=== PATIENT | male | born 1970 | race Caucasian/White ===

== ENCOUNTER → 2020-11-22 | Outpatient (CLI) | payer OTHER, SELFPAY ==
--- NOTE | 2020-11-22 09:00 | LIP_PTH ---
PATIENT: ANGÉLICA CHAMBERS LOC: [facility] U#:[id number] AGE/SX: 50/M ROOM: RE11/22/[address]: Dr. Yahir Handy MD : 1970 BED: DIS: 11/22/2020 SPEC #: [id number] RECD: 11/22/20 10:41 STATUS: SHREYA REJuan Manuel #: [id number] FATUMA: 11/22/20 09:[address]: Yahir Handy DEPT: SURGICAL PATHOLOGY RECD BY: Chio Larry ENTERED: 11/22/20 13:17 SP TYPE: LIPOMA OTHR DR: Dr. Ty Knight MD Tissues: Soft tissues, NOS Procedures: Surgery Specimen Level III HEADER OPERATION: Excision of right shoulder lipoma PRE-OP DIAGNOSIS: Lipoma right shoulder TISSUE SUBMITTED: Right shoulder lipoma MICROSCOPIC DIAGNOSIS Right shoulder lipoma, excision: Mature adipose tissue, consistent with lipoma. SJ:darien 11/23/2020 MICROSCOPIC DESCRIPTION Slides are reviewed. GROSS DESCRIPTION Received in fixative is one container labeled with the patient's name and designated right shoulder. The specimen consists of an irregular fragment of yellow fatty tissue measuring 3.8 x 2 x 2 cm. Serial sections reveal homogenous yellow cut surfaces. Sr. Payroll Processor sections are submitted in one cassette. / AM:darien 11/22/20 TC:1 CPT: 09244
== END | disposition home or self-care (01) ==
PROVIDERS: PCP Family Medicine; Referring Provider Surgery; Visit Provider Surgery
DX: D17.21 Benign lipomatous neoplasm of skin and subcutaneous tissue of right arm (principal)
CPT/HCPCS: 88304

== ENCOUNTER → 2021-10-03 | Outpatient (CLI) | payer OTHER, SELFPAY ==
--- NOTE | 2021-10-03 18:41 | CT_ITS ---
INDICATION: upper back mass -- upper back mass EXAMINATION: CT CHEST WITH CONTRAST - CT Chest W/ Contrast Injection TECHNIQUE: Helically acquired images were obtained of the chest following IV contrast. A radiation dose optimization technique was used for this scan. IV Contrast dosage and agent: 100 cc [id number] COMPARISON: None. FINDINGS: 5.5 x 1.2 x 5.8 cm intramuscular lipoma immediately posterior and medial to the right scapula. LUNGS, PLEURA AND LARGE AIRWAYS: No masses, consolidation, or edema. No pleural effusion or thickening. No pneumothorax. THYROID: No thyroid lesions. HEART AND PERICARDIUM: Heart size is normal. No pericardial effusion. VESSELS: Thoracic aorta is not dilated. No aortic dissection. No obvious central pulmonary embolism although this study was not performed with the pulmonary embolism protocol. MEDIASTINUM AND SHANELLE: No mediastinal or hilar adenopathy. Esophagus is unremarkable. No hiatal hernia. UPPER ABDOMEN: No acute abnormal finding. BONES: Thoracic spine degenerative change. CT/Chest WITH Contrast IMPRESSION: Intramuscular lipoma posterior medial to the right scapula measures up to 5.8 cm. No acute abnormal intrathoracic finding. Electronically Signed: Kevon Peterson MD at 6:57 EDT ,
[2021-10-03 19:05] LABS: CREATININE FINGERSTICK < 0.9 mg/dL (0.70-1.30); EGFR FINGERSTICK > 60.0000 mL/min (>60)
== END | disposition home or self-care (01) ==
PROVIDERS: PCP Family Medicine; Visit Provider Surgery
DX: D17.1 Benign lipomatous neoplasm of skin and subcutaneous tissue of trunk (principal)
CPT/HCPCS: 71260; Q9967

== ENCOUNTER 2021-11-29 09:49 | Day surgery (SDC) | payer OTHER, SELFPAY ==
[2021-11-29] VITALS (7 sets, daily range): BP systolic 120–159; BP diastolic 76–97; PULSE 54–85; RESP 16–18; TEMP 36.2–37.2; O2SAT 94–100; BMI 29.0
[2021-11-29] MEDS: Lactated Ringers 1,000 ML 15 ML IV (10:14)
--- NOTE | 2021-11-29 10:39 | PCM.HP.BLA ---
History and Physical Date of Admission: 11/29/21 Intake Intake Visit Reasons:?F/U CT FOR LIPOMA ON BACK Chief Complaint: Lipoma Right Upper Back Allergies No Known Allergies Allergy (Verified 09/27/21 08:23) [facility] Medical History?(Updated 11/20/21 @ 13:[address] Yahir Handy MD) Anxiety HTN (hypertension) Subcutaneous mass of back Surgical History? S/P carpal tunnel release Status post bilateral hernia repair Family History? Mother Diabetes Hypertension Heart diseaseFather Heart disease Social History? Smoking Status:? Never smoker alcohol intake:? never HPI HPI HPI: Patient is a 51-year-old male following up after CT scan for large lipoma on his right back which is bothering him anytime he has to lift anything or work ROS General General: No weight change or fatigue HEENT HEENT: No difficulty swallowing Endo Endocrine: No thyroid disease Musc Musculoskeletal: No back problems or arthritis Additional Details: Pain on the right side of his back where there is a large mass Cardio Cardiovascular: No pacemaker, heart disease, atrial fibrillation, high blood pressure, heart attack, heart stent, palpitations or chest pain Psych Psychiatric: No depression or anxiety Resp Respiratory: No shortness of breath, No cough, No COPD, No asthma and No emphysema Gastro Gastrointestinal: No abdominal pain, No nausea or vomiting, No diarrhea, No constipation, No blood in stool, No acid reflux, No hemorrhoids, No ulcers, No gallbladder problem and No black,tarry stools Jean Paul Hematologic: No blood thinners Exam Const General: cooperative Orientation: alert and oriented x3 HENMT Head: normal to inspection Neck Neck: normal visual inspection and full ROM Chest Chest palpation & inspection: normal inspection of the chest Resp Effort & Inspection: normal respiratory effort Auscultation: clear to auscultation bilaterally Cardio Rate: regular rate Rhythm: regular rhythm GI Inspection: non-distended Palpation: soft and nontender Musc Other: Soft tissue mass medial to the right scapula Skin General: no rashes or lesions noted Neuro General: patient alert and patient oriented x3 Extrem General: full ROM Psych Appearance: grossly normal Mental Status: mental status grossly normal Assessment and Plan Assessment and Plan (1) Lipoma of back: ?Status:?Acute ?Plan: The patient has a large lipoma which is intramuscular medial to the right scapula.? Patient reports that it is causing him pain and discomfort especially when lifting or working.? I discussed the CT scan with him and went over it with him and I discussed excision of this lipoma.? I discussed the increased risk due to it being intramuscular.? I also discussed the risks of bleeding and infection and seroma or hematoma formation.? I also discussed the risks of nerve injury.? Patient understands all the risks and would like to proceed with excision of this back mass. Yahir Handy MD Pager: [facility] [address] [place] [address] [place] [address] Office: I have re-examined the patient. There are no clinical changes since date of exam.
[2021-11-29] MEDS: Cefazolin 2 GM in 0.9% Normal Saline 100 ML IV (11:10)
--- NOTE | 2021-11-29 11:30 | LIP_PTH ---
PATIENT: ANGÉLICA CHAMBERS LOC: [facility] U#:[id number] AGE/SX: 51/M ROOM: RE11/29/[address]: Dr. Yahir Handy MD : 1970 BED: DIS: 11/29/2021 SPEC #: [id number] RECD: 11/29/21 13:47 STATUS: SHREYA REJuan Manuel #: [id number] FATUMA: 11/29/21 11:[address]: Yahir Handy DEPT: SURGICAL PATHOLOGY RECD BY: Chio Larry ENTERED: 12/02/21 09:08 SP TYPE: LIPOMA OTHR DR: Dr. Ty Knight MD Tissues: Soft tissues, NOS Procedures: Surgery Specimen Level III HEADER OPERATION: Excision, lipoma, back PRE-OP DIAGNOSIS: Lipoma of back TISSUE SUBMITTED: Lipoma of right back MICROSCOPIC DIAGNOSIS Lipoma, right back, excision: Mature adipose tissue consistent with lipoma. SJ:darien 12/03/2021 MICROSCOPIC DESCRIPTION Slides are reviewed. GROSS DESCRIPTION Received in fixative is one container labeled with the patient's name and designated lipoma of right back. The specimen consists of a lobulated piece of adipose tissue measuring 6.5 x 5.5 x 2 cm. The specimen is inked, serially sectioned and reveals yellow adipose cut surfaces. A detached piece of adipose tissue is also noted measuring 2 x 1.5 x 0.5 cm. Bleaching Supervisor sections are submitted in three cassettes. Cassette 1 also contains the detached piece of tissue. / DEVIN:darien 12/02/2021 TC:1 CPT: 67199
[2021-11-29] MEDS: Lidocaine 1% /Epi 1:100 (20ml) 20 ML Vial (11:36)
--- NOTE | 2021-11-29 11:50 | OP.PCM_ITS ---
Report of Operation Date of Procedure: 11/29/21 Pre-Operative Diagnosis: Intramuscular right back lipoma Post-Operative Diagnosis: Same Surgery/Procedure Performed:: Excision of intramuscular right back lipoma Description of Surgical Findings:: 7 cm lipoma deep to the fascia just medial to the scapula Specimen's removed: Lipoma Description of Procedure: Patient was brought back to the operating room and general anesthesia was induced. Patient was placed in left lateral decubitus position. The back was prepped and draped in usual sterile fashion. Just medial to the scapula an incision was marked and injected with local anesthetic. Scalpel was used to incise the skin and then electrocautery was used to maintain hemostasis. Next the fascia was incised using electrocautery and the lipoma was encountered. It was dissected free circumferentially using electrocautery and sharp dissection. It measured 7 cm in diameter. The cavity was dry and hemostasis was obtained with electrocautery. Next the fascia was reapproximated using a running 0 Vicryl suture. The subcutaneous tissue was then closed using a running 3-0 Vicryl suture. The skin was closed using a running 4-0 Monocryl suture. Steri- Strips and bandage were applied. Patient was then awoken. Patient tolerated the procedure well and was taken to PACU in stable condition. Admit VTE Documentation VTE Mechan Device Prophylaxis: SCD's
--- NOTE | 2021-11-29 11:50 | DCINST_ITS ---
Discharge Instructions Diet Discharge Diet: Light diet - advance as tolerated Activity Discharge Activity: May Not Drive (for 2-3 days or while taking narcotic medications) and May Shower (tomorrow over bandage) Lifting Restrictions: 15 lbs for 1 week Dressing / Incision Call your doctor if your incision/area has: Continuous Slow Oozing, Sudden Increased Bleeding, Increased Pain/ Swelling, Increased Redness, Foul Smelling Discharge and Swelling at the incision site Call your doctor if you observe: Fever of 101 or Higher Remove Dressing in: 2 days (Remove bandage in 2 days, remove steri strips in 7- 10 days) Cleanse incision/area with: Soap & Water Follow Up Care Please Follow Up With: Yahir Handy MD When: Please call to schedule 2 week follow up appointment. [phone] Test Results: Test results from this visit will be discussed in further detail at your follow- up appointment, if applicable. Discharge Plan Admission Attending Provider: Yahir Handy Primary Care Provider: Ty Knight Discharge Orders/Prescriptions Prescriptions: New oxycodone-acetaminophen [Percocet] 5-325 mg tablet 1 - 2 tab PO Q4H PRN (Reason: pain) 5 Days Qty: 20 0RF No Action sertraline 100 mg tablet 100 tablet PO DAILY amlodipine 10 mg tablet 10 tablet PO DAILY multivitamin Tablet 1 tab PO DAILY Referrals / Follow Up: Ty Knight MD [Primary Care Provider] - Disposition Disposition (needs filled in before D/C Order can be placed): Home, Self Care
[2021-11-29] MEDS: oxyCODONE 5 MG Tablet PO (13:44)
== END 2021-11-29 14:17 | disposition home or self-care (01) ==
LOC: SDC 09:51 → AC 09:53
PROVIDERS: PCP Family Medicine; Referring Provider Surgery; Visit Provider Surgery
PROC: (CPT 21933; principal; 2021-11-29 11:15)
DX: D17.1 Benign lipomatous neoplasm of skin and subcutaneous tissue of trunk (principal); I10 Essential (primary) hypertension; F41.9 Anxiety disorder, unspecified; Z79.899 Other long term (current) drug therapy
CPT/HCPCS: 21933; 00300; 88304; J7120; J2405

== ENCOUNTER → 2022-07-03 | Outpatient (CLI) | payer OTHER, SELFPAY ==
--- NOTE | 2022-07-03 15:22 | MRI_ITS ---
EXAM: MR RIGHT LOWER EXTREMITY WITHOUT INTRAVENOUS CONTRAST, FOOT CLINICAL INDICATION: PLANTAR FASCIAL FIBROMATOSIS TECHNIQUE: Multiplanar and multisequence MR images of the right foot without intravenous contrast. This report was created using Sensdata report FilmTrack technology. COMPARISON: None. FINDINGS: LIGAMENTS: MEDIAL COLLATERAL: Unremarkable. Intact. LATERAL COLLATERAL: Unremarkable. Intact. LISFRANC: Unremarkable. Intact. TENDONS: FLEXOR: Intact tendons. Tenosynovitis involving the posterior tibialis tendon and flexor hallux longus tendon. EXTENSOR: Unremarkable. Intact. PERONEAL: Peroneal tenosynovitis. The tendons are intact. . TIBIALIS ANTERIOR: Unremarkable. Intact. TIBIALIS POSTERIOR: Unremarkable. Intact. MUSCLES: Unremarkable. No edema or myositis. FLUID: Unremarkable. No joint effusion. PLANTAR FASCIA: Thickening of the central cord of plantar fascial with fluid signal immediately immediately adjacent to the thickened cord. BONES/JOINTS: Likely reactive bone marrow signal changes at the posterior inferior calcaneus. Thickening of the anterior talofibular ligament probably previous injury. Ankle mortise intact with no osteochondral lesions or defects. Deltoid ligament complex is intact. Normal forefoot alignment. No fracture. No joint effusion. No other ligament tears. OTHER SOFT TISSUES: Tendons are intact. MRI/Lower Ext Joint Only (Routine) IMPRESSION: 1. Thickening of the central cord of plantar fascial with fluid signal immediately immediately adjacent to the thickened cord. 2. Likely reactive bone marrow signal changes at the posterior inferior calcaneus. 3. Thickening of the anterior talofibular ligament probably previous injury. 4. Tenosynovitis involving the peroneal tendons, posterior tibial tendon, and flexor hallux longus tendon. Electronically Signed: David Dejesus MD at 21:37 EDT ,
== END | disposition home or self-care (01) ==
PROVIDERS: PCP Family Medicine; Referring Provider Podiatrist; Visit Provider Podiatrist
DX: M72.2 Plantar fascial fibromatosis (principal)
CPT/HCPCS: 73721

== ENCOUNTER 2022-08-15 08:36 | Day surgery (SDC) | payer OTHER, SELFPAY ==
[2022-08-15 08:57] VITALS: BP 155/97; PULSE 71; RESP 16; TEMP 36.4; O2SAT 96; BMI 25.4
[2022-08-15] MEDS: Lactated Ringers 1,000 ML 15 ML IV (09:03)
[2022-08-15] MEDS: Cefazolin 2 GM in 0.9% Normal Saline 100 ML IV (11:07)
[2022-08-15] MEDS: Bupivacaine Mpf 0.5% 30 ML VIAL (12:01)
[2022-08-15] MEDS: Bacitracin 500 UNITS/GM PACKET (12:01)
[2022-08-15 12:15] VITALS: BP 121/91; BP 155/97; PULSE 55; RESP 16; TEMP 36.3; O2SAT 94
--- NOTE | 2022-08-15 12:17 | PCM.OPRPT ---
Problems Associated Problem List Diagnoses (1) Other acute postprocedural pain: (2) Plantar fascial fibromatosis: Report of Operation Date of Procedure: 08/15/22 Pre-Operative Diagnosis: 1. plantar fasciitis, right foot Post-Operative Diagnosis: same Surgery/Procedure Performed:: endoscopic plantar fasciotomy right foot Description of Surgical Findings:: Patient had MRI confirmed plantar fascia has failed cam boot immobilization and inserts injection. Whether to proceed with surgical intervention. Surgeon: Jac Pedraza nursing program chair: None (bhavin beverage) Type of Anesthesia: General Special Medications: 20cc 0.5% marcaine plain Specimen's removed: none Drains: none Estimated Blood Loss (mL): minimal Fluids Replaced: none Description of Procedure: Patient brought back the operating please complete in supine position. Patient used under general anesthesia. Well-padded right thigh tourniquet applied. Right lower extremity scrubbed prepped draped using typical aseptic fashion. Right lower extremity was elevated exsanguinated tourniquet was inflated to 300 mmHg. Just along the just 1 cm distal to the calcaneal tuberosity along the plantar medial surface a small stab incision was made with a 15 blade using the plane finder the plantar fascial band was scrubbed and identified the plane finder was passed from medial to lateral along the plantar aspect of that central band of the plantar fascia a second incision was made laterally portal incision stab incision with a 15 blade at the site of the plane finder plane finder was passed all the way through the cannula with trocar was then inserted and the slot was then rotated to adequately visualize the plantar fascia from an inferior to superior aspect. The cannula was then cleaned with multiple Q-tips. The 3 mm scope was inserted and the plantar fascial band was identified the medial two thirds of the plantar fascial band was then released using the hook blade, with the Arthrex endoscopic plantar fasciotomy release kit from lateral to medial and it was two thirds of the central band was released. Adequate visualization of the underlying muscle was noted which suggestive sufficient release. All devices were removed from incision sites. Incision flushed with copious amounts of normal sterile saline. Incision was closed with horizontal mattress 3-0 Prolene. Dressed with bacitracin Adaptic 4 x 4's Kerlix and a well-padded AO splint. Prior to incisional closure the tourniquet was let down. Patient transferred to PACU with vital signs stable vascular status intact all digits for further monitoring prior to discharge. Patient tolerated procedure and anesthesia well in apparent satisfactory condition. No complications
[2022-08-15 12:29] VITALS: BP 128/94; BP 155/97; PULSE 58; RESP 16; O2SAT 93
[2022-08-15 12:30] VITALS: BP 135/94; BP 155/97; PULSE 51; RESP 16; O2SAT 98
[2022-08-15 13:15] VITALS: BP 155/97
== END 2022-08-15 13:36 | disposition home or self-care (01) ==
LOC: SDC 08:37 → AC 08:39
PROVIDERS: PCP Family Medicine; Referring Provider Podiatrist; Visit Provider Podiatrist
PROC: (CPT 29893; principal; 2022-08-15 10:00)
DX: M72.2 Plantar fascial fibromatosis (principal); G89.18 Other acute postprocedural pain; F17.220 Nicotine dependence, chewing tobacco, uncomplicated; I10 Essential (primary) hypertension; F32.A Depression, unspecified; Z79.899 Other long term (current) drug therapy; Z79.82 Long term (current) use of aspirin
CPT/HCPCS: 29893; 01464; J7120; J2405

== ENCOUNTER 2022-10-10 09:00 | Outpatient (RCR) | payer OTHER, SELFPAY ==
--- NOTE | 2022-09-17 10:51 | HP.PTEVAL ---
Patient's Visit Information Visit Information Visit Information: ANGÉLICA CHAMBERS is a 51 year old M referred to Physical Therapy by Dr. Jac Pedraza DPM with a diagnosis of Plantar fascia fibromatosis s/p PF surgery 08/15. Date of Evaluation: 09/17/22 Physical Therapist: Renzo Cruz DPT, OCS, CSCS Visit Plan Frequency: 2x /Week Duration: 4-6 Weeks Plan: 22x/week for 4-6 as needed for 1. STM gently PF and stretch R PF 2. strength adn proprioception R foot and ankle 3. general LE strength to tolerate return to work 10 hrs on feet for work. Walking progression. Subjective Subjective: 08/15 had plantarfasciitis surgery. had pain for a couple years and failed conservative therapy. Surgery seemed to help. pain not currently an issue. Slight pain at cookout last thursday after being on feet for long time. Sleep is not a problem. Healing for last month, in boot for 4 weeks and was NWB for first 3 weeks. 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 Off work until October 07. Hobbies: walking. Basic ADLs are well. Pain R foot: Pain Intensity (Out of 10): 0 Pain Intensity Range: 0 and 7 Objective Objective: Walks into PT I with slight R antalgia avoiding push off. AROM R ankle DF 0 vs 5 on L, PF 55 B, inv and ev symmetrical and WFL without pain. Tender medial R PF today gently. Incisions have healed well without any redness or concerns and no obvious palpable sacr tissue. Big toe AROM WFL and symmetrical B pes planus apparent. corrective insoles in place today. Metatarsal movement is nearly symmetrical side to side. strength ankle 4 R DF, inv and ev vs 4+ on L. PF heel raises are easy B without pain, slightly harder R vs L. LE strength 4/5 knees and hips B LE reflexes 2/3 patella and achilles Sensation LE WNL to gross light touch. able to toe walk and heel walk. Balance/Special Test Scores Lower Extremity Functional Score: 60 Goals Goal 1:: Full aROM R ankle to L without pain Goal Time Frame: 2 Weeks Goal 2:: Walk without antalgia into PT Goal Time Frame: 2 Weeks Goal 3:: I appropriate strength adn stretching R foot for prophylaxis Goal Time Frame: 4-6 Weeks Goal 4:: Pt ready to return to work Goal Time Frame: 2-4 Weeks Rehabilitation Potential Physical Therapy Diagnosis: stiffness and weakness R foot post surgery Rehabilitation Potential: Good Anticipated Interventions Patient/Client Instruction: Educate patient on: Condition and Plan of Care For the Purpose of:: To decrease pain, To increase ROM, To improve nutrient delivery to tissue and To improve muscle performance and motor function Therapeutic Exercise to Include: Strength training, Flexibilty training, Gait and locomotor training, Passive ROM and Active ROM For the Purpose of:: To decrease pain, To increase ROM, To improve nutrient delivery to tissue, To improve muscle performance and motor function and To increase tolerance to activity/condition/position Manual Therapy Techniques to Include: Mobilization and Soft tissue mobilization For the Purpose of:: To decrease pain, To increase ROM and To improve nutrient delivery to tissue Text: Thank you for the opportunity to evaluate your patient. For Medicare and Medicare HMO plans, please review the plan of care and approve it. It will need to be FAXED BACK to us at [phone] for Medicare purposes. For Medicare only, by signing this I certify the plan of care. Please let me know if there are questions or concerns regarding this plan of care. Physician Signature: Date:
--- NOTE | 2022-10-10 09:43 | HP.PTDCSUM ---
Discharge Summary D/C summary: It has been my pleasure to treat ANGÉLICA CHAMBERS referred by Dr. Jac Pedraza DPM, with the diagnosis of Plantar fascia fibromatosis s/p PF surgery 08/15 for a total of 7 visit(s). Discharge Date: 10/10/22 Please see the following information for a summary of their discharge status. Subjective Subjective: Doing good. Not much pain. ROM is good, limps a little but due to hip. HEP going well at home. Sleep is OK. To doctor next Thursday. Activities at home pretty normal. Will go back to work Thursday. Can sit as needed. Pain R foot: Pain Intensity (Out of 10): 0 Overall Improvement % Improvement: 98 Objective Objective/Function: 4 DF, 60 PF, 30 inv, 20 eversion without pain. strength ankle 4+ all directions without pain. metatarsals moving well and without discomfort. walking without antalgia, steps reciprocal without rail or compensation. Doing well overall. Goals Goal 1:: Full aROM R ankle to L without pain Goal Progress: Goal Met Goal 2:: Walk without antalgia into PT Goal Progress: Goal Met Goal 3:: I appropriate strength adn stretching R foot for prophylaxis Goal Progress: Goal Met Goal 4:: Pt ready to return to work Goal Progress: Goal Met Plan Plan: d/c, to doctor next week. D/C Information d/c sentence: If there are questions or concerns regarding this patient's physical therapy, please feel free to call me at [phone]. Thank you for the referral of this patient. Sincerely, Renzo Cruz, DPT, OCS, CSCS Balance/Gait/Functional tests Balance/Special Test Scores Lower Extremity Functional Score: 74
== END 2022-10-10 09:52 | disposition home or self-care (01) ==
LOC: PT 09:00
PROVIDERS: PCP Family Medicine; Referring Provider Podiatrist; Visit Provider Podiatrist
DX: M72.2 Plantar fascial fibromatosis (principal)
CPT/HCPCS: 97110; 97140; 97161; 97164

== ENCOUNTER → 2023-05-23 | Outpatient (CLI) | payer OTHER, SELFPAY ==
--- OUTSIDE RECORDS SUMMARY | 2023-05-23 08:53 | XMS RPT_ITS | CCD ---
Author Name Unknown Address [address] [place] [address] Organization [facility] Care Team Providers Care Installation Engineer Name Role Phone Amberly Syed MD Unavailable Amberly Syed MD Unavailable [facility] Unavailable [phone] Sergio BLACKWOOD, Dr. Fernando Momin Unavailable Podiatry Provider Unavailable Unavailable Rozina BLACKWOOD, Dr. Sinclair Unavailable Maylin Eugene LPN Unavailable Darell BLACKWOOD, Camilo Lcuero Unavailable Daniel Steele MD Unavailable Kimberly OSORIO, Gilbert Alvarez Unavailable Zeinab Wallis Unavailable Unavailable Louise Monteiro MA Unavailable Unavailable Haleigh Huang PA-C Unavailable Cate QUESADA, Jennifer Unavailable Unavailable Gerdajae CORONA, Josselin Haney Unavailable Unavailab le Unavailable Unavailable AMBERLY SYED Attending Unavailable AMBERLY SYED Consulting Unavailable AMBERLY SYED Primary Care Unavailable AMBERLY SYED Admitting Unavailable PROVIDER, UNKNOWN Consulting Unavailable PROVIDER, UNKNOWN Consulting Unavailable PROVIDER, UNKNOWN Consulting Unavailable AMBERLY SYED Consulting Unavailable GILBERT WALLIS Attending Unavailable GILBERT WALLIS Primary Care Unavailable GILBERT WALLIS Admitting Unavailable PROVIDER, UNKNOWN Consulting Unavailable PROVIDER, UNKNOWN Consulting Unavailable PROVIDER, UNKNOWN Consulting Unavailable Neuro-Surgery Provider Unavailable Unavailab le Medications Current Medications Medication Drug Class(es) Dates Sig (Normalized) Sig (Original) atorvastatin 40 mg oral tablet (10 sources) HMG-CoA Reductase Inhibitor Start: 3 atorvastatin 40 mg tablet ; 1 (one) tablet qhs for 0 days Quantity: 90 {Tablet} Refills: 3 Ordered: 26-Feb-2023 MD Amberly Syed Start: 26-Feb-2023 gabapentin 300 mg oral capsule (1 source) Anti-epilepti c Agent Start: 4 take 1 capsule by mouth at bedtime gabapentin 300 mg capsule ; 1 (one) capsule at bedtime for 0 days Quantity: 30 {Capsule} Refills: 1 Ordered: 07-May-2023 MD Amberly Syed Start: 07-May-2023 hydroCHLOROthiazide 25 mg oral tablet (10 sources) Thiazide Diuretic Start: 3 hydroCHLOROthiazide 25 mg tablet ; 1 (one) tablet qam for 0 days Quantity: 90 {Tablet} Refills: 3 Ordered: 26-Feb-2023 MD Amberly Syed Start: 26-Feb-2023 24 hr metoprolol succinate 50 mg extended release oral tablet (10 sources) beta-Adrenerg ic Sonja Start: 3 metoprolol succinate ER 50 mg tablet,extended release 24 hr ; 1 (one) tablet daily for 0 days Quantity: 30 {Tablet} Refills: 5 Ordered: 11-Nov-2022 MD Camilo Lozoya Start: 11-Nov-2022 Multivitamin Adult Oral Tablet (10 sources) take 1 tablet by mouth once daily Multivitamin Adult Oral Tablet ; 1 daily rOPINIRole 1 mg oral tablet (10 sources) Nonergot Dopamine Agonist Start: 3 rOPINIRole 1 mg tablet ; 1 (one) tablet qhs for 0 days Quantity: 30 {Tablet} Refills: 1 Ordered: 26-Feb-2023 MD Amberly Syed Start: 26-Feb-2023 sertraline 100 mg oral tablet (20 sources) Serotonin Reuptake Inhibitor Start: 3 sertraline 100 mg tablet ; 1 1/2 Tablet daily for 0 days Quantity: 135 {Tablet} Refills: 1 Ordered: 13-Oct-2022 MD Camilo Lozoya Start: 13-Oct-2022 Completed/Discontinued Medications Medication Drug Class(es) Dates Sig (Normalized) Sig (Original) amLODIPine 10 mg oral tablet (10 sources) Dihydropyridine Calcium Channel Sonja Start: 08-27-2022 End: 09-11-2022 amLODIPine 10 mg tablet ; 1 (one) Tablet daily for 0 days Quantity: 90 {Tablet} Refills: 3 Ordered: 11-Sep-2022 MD Amberly Syed Start: 27-Aug-2022 End: 11-Sep-2022 Status: Inactive amoxicillin 875 mg oral tablet (10 sources) Penicillin-class Antibacterial Start: 02-26-2023 End: 03-24-2023 amoxicillin 875 mg tablet ; 1 (one) tablet bid for 0 days Quantity: 14 {Tablet} Refills: 0 Ordered: 24-Mar-2023 CHLOE Eugene Start: 26-Feb-2023 End: 24-Mar-2023 Status: Inactive amoxicillin 875 mg / clavulanate 125 mg oral tablet (10 sources) Penicillin-class Antibacterial Start: 01-26-2016 End: 06-19-2018 take 1 tablet by mouth twice daily Amoxicillin-Pot Clavulanate 875-125 MG Oral Tablet ; 1 (one) Tablet bid for 0 days Quantity: 20 {Tablet} Refills: 0 Ordered: 19-Jun-2018 Start: 26-Jan-2016 End: 19-Jun-2018 Status: Inactive azithromycin 250 mg oral tablet (4 sources) Macrolide Antimicrobial Start: 03-25-2023 End: 03-30-2023 azithromycin 250 mg tablet ; 2 (two) tablet day one, then one daily x 4 for 5 days Quantity: 6 {Tablet} Refills: 0 Ordered: 25-Mar-2023 CHLOE Eugene Start: 25-Mar-2023 End: 30-Mar-2023 Status: Inactive lisinopril 10 mg oral tablet (10 sources) Angiotensin Converting Enzyme Inhibitor Start: 10-08-2020 End: 08-16-2021 take 1 tablet by mouth once daily Lisinopril 10 MG Oral Tablet ; 1 (one) Tablet daily for 0 days Quantity: 90 {Tablet} Refills: 3 Ordered: 16-Aug-2021 DIPAK Esposito Start: 08-Oct-2020 End: 16-Aug-2021 Status: Discontinued oseltamivir 75 mg oral capsule (10 sources) Neuraminidase Inhibitor Start: 01-19-2012 End: 01-24-2012 take 1 capsule by mouth twice daily TAMIFLU, 75MG (Oral Capsule) ; 1 (one) Cap twice daily for 5 days Quantity: 10 {Cap} Refills: 0 Ordered: 16-Jul-2015 MD Camilo Lozoya Start: 19-Jan-2012 End: 24-Jan-2012 Status: Inactive predniSONE 20 mg oral tablet (10 sources) Start: 07-16-2015 End: 01-26-2016 take 3 tablets by mouth once daily, then take 2 tablets by mouth once daily, then take 1 tablet by mouth once daily, then take 0.5 tablet by mouth once daily PredniSONE 20 MG Oral Tablet ; 1 (one) Tablet as directed for 0 days Quantity: 20 {Tablet} Refills: 0 Ordered: 26-Jan-2016 Start: 16-Jul-2015 End: 26-Jan-2016 Status: Inactive Comments: Take 3tabs qd for 3 days thenTake 2tabs qd for 3 days thenTake 1tab qd for 3 days thenTake 1/2tab qd for 4 days. Problems Active Problems Problem Classification Problem Date Documented Da te Episodic/Chronic Administrative/social admission (10 sources) Issue of repeat prescriptions 01-19-2012 Episodic Anxiety disorders (20 sources) Anxiety; Translations: [Anxiety disorder, unspecified] 02-26-2023 Chronic Diabetes mellitus without complication (20 sources) Hyperglycemia; Translations: [Hyperglycemia, unspecified] 02-19-2023 Episodic Disorders of lipid metabolism (20 sources) Hyperlipidemia; Translations: [Hyperlipidemia, unspecified] 02-26-2023 Chronic Essential hypertension (20 sources) Hypertensive disorder; Translations: [Essential (primary) hypertension] 02-26-2023 Chronic Osteoarthritis (20 sources) Arthritis; Translations: [Unspecified osteoarthritis, unspecified site] 02-26-2023 Chronic Other and unspecified benign neoplasm (10 sources) Lipoma of back; Translations: [Benign lipomatous neoplasm of skin and subcutaneous tissue of trunk] 08-16-2021 Episodic Other and unspecified benign neoplasm (10 sources) Lipoma (clinical); Translations: [Benign lipomatous neoplasm, unspecified] 10-08-2020 Episodic Other connective tissue disease (10 sources) Plantar fasciitis; Translations: [Plantar fascial fibromatosis] 04-23-2022 Episodic Other connective tissue disease (10 sources) Pain in right heel; Translations: [Pain in right foot] 04-22-2022 Episodic Other connective tissue disease (10 sources) Pain in right hand; Translations: [Pain in right hand] 06-19-2018 Episodic Other connective tissue disease (10 sources) Hand cramps; Translations: [Cramp and spasm] 09-20-2016 Episodic Other connective tissue disease (4 sources) Pain in upper limb; Translations: [Pain in arm, unspecified] 04-13-2023 Episodic Other hereditary and degenerative nervous system conditions (20 sources) Restless legs; Translations: [Restless legs syndrome] 02-26-2023 Chronic Other lower respiratory disease (20 sources) Cough; Translations: [Cough] 03-06-2023 Episodic Other non-traumatic joint disorders (10 sources) Shoulder pain; Translations: [Pain in right shoulder] 07-18-2015 Episodic Other screening for suspected conditions (not mental disorders or infectious disease) (20 sources) Screening status; Translations: [Encounter for screening for malignant neoplasm of prostate] 02-19-2023 Episodic Other upper respiratory disease (8 sources) Congestion of nasal sinus; Translations: [Nasal congestion] 03-25-2023 Episodic Other upper respiratory infections (20 sources) Acute sinusitis; Translations: [Acute sinusitis, unspecified] 02-26-2023 Episodic Residual codes; unclassified (20 sources) Tobacco user; Translations: [Tobacco use] 02-26-2023 Episodic Past or Other Problems Problem Classification Problem Date Documented Da te Episodic/Chronic Unclassified (10 sources) Foot pain - The pain is in the right foot and is located in the heel. The onset of the foot pain was acute and has been occurring in an intermittent pattern for 3 weeks. The course has been increasing. The pain is mild to moderate. The pain is characterized as tearing. The pain is aggravated by any movement. The pain has not been relieved by anything. The symptoms have been associated with swelling and decreased ROM. There have been no previous diagnostic tests. There have been no previous evaluations. These has been no previous physical therapy. There have been no previous surgeries. There has been no use of assistive devices. 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 The hand pain is characterized as a dull aching (will become a sharper pain when the right index finger and right thumb lock together). The hand pain is described as being located in the index finger (right) and long finger (right). There have been no relieving factors. The symptoms have been associated with joint swelling and difficulty with grasping (painful with grabbing items.), but have not been associated with decreased ROM. There have been no previous diagnostic tests. There have been no previous surgeries. 06-19-2018 Unclassified (10 sources) Hand pain - The onset of the hand pain has been gradual and has been occurring in an intermittent pattern for 1 year. The course has been constant. The hand pain is characterized as a moderate cramping. The hand pain is described as being located in the base of thumb, index finger and small finger. Note for Hand pain : Index finger and thumb will cramp up when he goes to pick something up. Pt has hx of dog bite in right forearm. reviewed by B 09-20-2016 Unclassified (10 sources) Cold Symptoms - Symptoms include nasal congestion, runny nose, sore throat, dry cough, fever, headache and facial pain. The onset was sudden 1 week(s) ago. The symptoms occur constantly. The patient describes this as moderate in severity and worsening. Current treatment includes non-prescription cold medication, cough suppressants and NSAIDs. Risk factors do not include smoking. The patient has been exposed to an individual with similar symptoms. Patient denies history of seasonal allergies. 01-26-2016 Unclassified (10 sources) Shoulder pain - The onset of the shoulder pain has been gradual and has been occurring in an intermittent pattern for 2 years. The course has been increasing. The pain is characterized as a moderate to severe burning sensation (top of shoulder but it goes down his rt arm and his wrist/hand go numb (really that is the first time he has had the numbness/tingling) - only 4th and 5th digits). The pain is described as being located in the right shoulder and is aggravated by any movement (after end of 10 hr job his shoulder blade will be swollen). Relieving factors include nothing (does use aleve and ice). The symptoms have been associated with painful ROM. There has been no previous diagnostic testing. Previous evaluations have been completed by a chiropractor ( long time ago ). There has been no previous physical therapy. There has been no previous surgery. There has been no use of assistive devices. 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 07-18-2015 Results Test Name Value Interpretation Reference Range Facil ity Vital Signs Date Time Vital Sign Value Performing Clinician Denise helton 02-26-2023 14:13-0500 Body height 179.07 cm [facility] Work Phone: [employer] [facility]; [employer] [email or web address] 02-26-2023 14:13-0500 Body mass index (BMI) [Ratio] 31.26 kg/m2 [facility] Work Phone: [employer] [facility]; [employer] [email or web address] 02-26-2023 14:13-0500 Body surface area Derived from formula 2.19 m2 [facility] Work Phone: [facility] [facility]; [employer] 02-26-2023 14:13-0500 Body temperature 98.3 [degF] [facility] Work Phone: [employer]; [employer] Encounters Encounter Date Encounter Type Care Provider Facility Start: 05-07-2023 End: 05-07-2023 Orders Amberly Syed MD Work Phone[email or web address] Start: 04-13-2023 End: 04-13-2023 Orders Amberly Syed MD Work Phone[facility] [employer] [email or web address]. Start: 04-10-2023 End: 04-10-2023 Orders Ambrely Syed MD Work Phone[facility] [facility] Start: 03-30-2023 End: 03-30-2023 Historical Summary Amberly Syed MD Work Phone[facility] Start: 03-25-2023 End: 03-25-2023 Orders Amberly Syed MD Work Phone: [employer] Start: 03-06-2023 End: 03-06-2023 ambulatory [facility] Start: 03-06-2023 Review Amberly liriano MD Work Phone: [employer]. Start: 03-06-2023 End: 03-06-2023 Orders Amberly Syed MD Work Phone: [employer] Start: 02-26-2023 End: 02-26-2023 Patient encounter procedure Amberly Syed MD Work Phone: [employer] Start: 02-26-2023 End: 02-26-2023 Physical examination Amberly Syed MD Work Phone: [employer]; [employer]. Start: 02-19-2023 End: 02-19-2023 Orders Amberly Syed MD Work Phone: [employer] Start: 02-12-2023 End: 02-12-2023 Orders Amberly Syed MD Work Phone: [employer] Start: 09-26-2022 End: 09-26-2022 Orders Amberly Syed MD Work Phone: [employer] Start: 09-11-2022 End: 09-11-2022 Patient encounter procedure Amberly Syed MD Work Phone: [employer] Start: 04-23-2022 End: 04-23-2022 Orders Amberly Syed MD Work Phone: [employer]. Start: 04-22-2022 End: 04-22-2022 ambulatory [facility] Start: 04-22-2022 End: 04-22-2022 Office outpatient visit 15 minutes Amberly Syed MD Work Phone: [employer] Start: 02-03-2022 End: 02-03-2022 Orders Amberly Syed MD Work Phone: [employer]. Start: 08-16-2021 End: 08-16-2021 Orders Amberly Syed MD Work Phone: [employer] Start: 08-16-2021 End: 08-16-2021 Patient encounter procedure Amberly Syed MD Work Phone: [employer] Start: 10-08-2020 End: 10-08-2020 Patient encounter procedure Amberly Syed MD Work Phone: [employer] Start: 10-08-2020 End: 10-08-2020 Physical examination Amberly Syed MD Work Phone: [employer]; [employer] Start: 12-02-2019 End: 12-02-2019 Patient encounter procedure Amberly Syed MD Work Phone: [employer] Start: 08-05-2019 End: 08-02-2019 Historical Summary Amberly Syed MD Work Phone: [employer] Start: 08-05-2019 End: 08-05-2019 Office outpatient visit 15 minutes Amberly Syed MD Work Phone: [employer] Start: 07-09-2019 End: 07-09-2019 Office outpatient visit 25 minutes Amberly Syed MD Work Phone: [employer] Start: 06-19-2018 End: 06-19-2018 Office outpatient visit 15 minutes Amberly Syed MD Work Phone: [employer] Start: 09-20-2016 End: 09-20-2016 Office outpatient visit 15 minutes Amberly Syed MD Work Phone: [employer] Start: 01-26-2016 End: 01-26-2016 Patient encounter procedure Amberly Syed MD Work Phone: [employer] Start: 07-16-2015 End: 07-18-2015 Patient encounter procedure Amberly Syed MD Work Phone: [employer]. Start: 01-19-2012 End: 01-19-2012 Medication Amberly Syed MD Work Phone: [employer]. Physical examination Maylin alexander LPN Work Phone: [employer] Procedures Date Procedure Procedure Detail Performing Clinician Start: 03-20-2023 End: 03-20-2023 FIT DNA test Maylin Eugene LPN Work Phone: Plan of Treatment Date Care Activity Detail Author Start: 03-06-2023 Chest x-ray CHEST X-RAY, P A AND LATERAL ([id number]) Start: 06-Mar-2023 Intent [employer] Start: 02-26-2023 Oncology colorectal screening evens 10 dna markrs COLOGUARD COLON CANCER SCREENING USING STOOL DNA AT POINT OF CARE ([id number]) Start: 26-Feb-2023 Intent [employer] Payers Date Payer Category Payer Unknown [id number] 1970 Unknown [id number] Unknown [employer] Unknown [id number] Social History Date Type Detail Facility Spouse Spouse [employer] Tobacco Use: Tobacco Use: ; N ever smoker. Uses chewing tobacco. [employer]. Male [employer] Work Phone: Never smoked tobacco [employer] Work Phone: Uses chewing tobacco [employer]. Work Phone: Summary Purpose Family History Coronary Artery Disease Status:Active Comments :Mother. from [place] Father Status:Active Comments: d. Hypertension Status:Active Comments:Family Members In General. Mother Status:Active Comments: d. Coronary Artery Disease Status:Active Comments :Mother. from [place] Father Status:Active Comments: d. Hypertension Status:Active Comments:Family Members In General. Mother Status:Active Comments: d. Coronary Artery Disease Status:Active Comments :Mother. from [place] Father Status:Active Comments: d. Hypertension Status:Active Comments:Family Members In General. Mother Status:Active Comments: d. Coronary Artery Disease Status:Active Comments :Mother. from [place] Father Status:Active Comments: d. Hypertension Status:Active Comments:Family Members In General. Mother Status:Active Comments: d. Coronary Artery Disease Status:Active Comments :Mother. from [place] Father Status:Active Comments: d. Hypertension Status:Active Comments:Family Members In General. Mother Status:Active Comments: d. Coronary Artery Disease Status:Active Comments :Mother. from [place] Father Status:Active Comments: d. Hypertension Status:Active Comments:Family Members In General. Mother Status:Active Comments: d. Coronary Artery Disease Status:Active Comments :Mother. from [place] Father Status:Active Comments: d. Hypertension Status:Active Comments:Family Members In General. Mother Status:Active Comments: d. Coronary Artery Disease Status:Active Comments :Mother. from [place] Father Status:Active Comments: d. Hypertension Status:Active Comments:Family Members In General. Mother Status:Active Comments: d. Coronary Artery Disease Status:Active Comments :Mother. from [place] Father Status:Active Comments: d. Hypertension Status:Active Comments:Family Members In General. Mother Status:Active Comments: d. Coronary Artery Disease Status:Active Comments :Mother. from [place] Father Status:Active Comments: d. Hypertension Status:Active Comments:Family Members In General. Mother Status:Active Comments: d. Advance Directives No Advanced Directives Records FoundNo Advanced Directives Records FoundNo Advanced Directives Records Found Additional Source Comments (unrecognized sect ion and content) No Status Records FoundNo Status Records FoundNo Status Records Found INFORMATION SOURCE (unrecogn ized section and content) DATE CREATED AUTHOR AUTHOR'S ORGANIZ ATION 02/22/2023 [facility] DATE CREATED AUTHOR AUTHOR'S ORGANLAURA ATION 03/08/2023 [facility] FOR RECORDS PERTAINING TO PATIENTS WHO ARE OR HAVE BEEN ENROLLED IN A CHEMICAL DEPENDENCY/SUBSTANCEABUSE PROGRAM, SOME INFORMATION MAY BE OMITTED. This clinical summary was aggregated from multiple sources. Caution should be exercised in using it in the provision of clinical care. This summary normalizes information from multiple sources, and as a consequence, information in this document may materially change the coding, format and clinical context of patient data. In addition, data may be omitted in some cases. CLINICAL DECISIONS SHOULD BE BASED ON THE PRIMARY CLINICAL RECORDS. [employer] [facility]. provides no warranty or guarantee of the accuracy or completeness of information in this document.
--- NOTE | 2023-05-23 09:09 | MRI_ITS ---
STUDY: MRI CERVICAL SPINE WITHOUT CONTRAST REASON FOR EXAM: Male, 52 years old. Pain RADIATING INTO R ARM TECHNIQUE: Standardized fat and water weighted pulse sequences were obtained in the sagittal and axial planes. COMPARISON: X-ray 04/30/2023 FINDINGS: Normal foramen magnum and brainstem-cervical cord junction. Normal craniovertebral junction. Normal anterior atlantoaxial articulation. Normal odontoid process. Normal cervical lordosis. Normal vertebral bodies and posterior osseous elements. C2-3: Mild left facet hypertrophy and left uncovertebral hypertrophy produces moderate left neural foraminal stenosis. No central spinal stenosis. C3-4: Mild left facet hypertrophy produces mild left neural foraminal stenosis. No central spinal stenosis. C4-5: Normal endplates. Normal disc height, signal and morphology. Normal central canal and intervertebral neural foramina. C5-6: Focal kyphosis but no spinal stenosis or neural foraminal stenosis. C6-7: Loss of disc height with kyphosis and a mild broad disc protrusion produces moderate spinal stenosis with abutment of the central spinal cord but no neural foraminal stenosis. C7-T1: Mild bilobed disc osteophyte complex produces mild spinal stenosis and mild bilateral neural foraminal stenosis. Normal cervical cord. Normal visualized soft tissue structures. MRI/Spine Cervical (Routine) IMPRESSION: Multilevel degenerative changes, as described above. Electronically Signed: Holger Bruce MD at 23:47 EDT ,
== END | disposition home or self-care (01) ==
LOC: MRI 08:50
PROVIDERS: PCP Family Medicine; Referring Provider Orthopaedic Surgery Orthopaedic Surgery of the Spine; Visit Provider Orthopaedic Surgery Orthopaedic Surgery of the Spine
DX: G72.9 Myopathy, unspecified (principal)
CPT/HCPCS: 72141

== ENCOUNTER 2023-06-23 10:22 | Observation (INO) | payer OTHER, SELFPAY ==
[2023-06-18 14:44] LABS: HIV - WCH Non-Reactive (Nonreactive); Hepatitis B Surface Antibody Non-Reactive; Hepatitis C Antibody Non-Reactive (Nonreactive)
[2023-06-20 06:09] LABS: Hepatitis A AB, Total Negative (Negative)
[2023-06-23] VITALS (15 sets, daily range): BP systolic 144–160; BP diastolic 78–105; PULSE 58–100; RESP 16–20; TEMP 36.3–36.8; O2SAT 88–96; BMI 31.2
[2023-06-23] MEDS: Acetaminophen 500 MG Tablet 1000 MG PO ×3 (06:17→22:54)
[2023-06-23] MEDS: dexAMETHasone 10 MG/ML Vial 8 MG IV (06:17)
[2023-06-23] MEDS: Lactated Ringers 1,000 ML 15 ML IV ×2 (06:19→09:30)
[2023-06-23] MEDS: Magnesium 1 GM over 15 mins IV (06:20)
[2023-06-23 06:42] LABS: Bedside Glucose 83 mg/dL (74-106)
--- NOTE | 2023-06-23 07:23 | HP.PCM_ITS ---
History and Physical Date of Admission: 06/23/23 MR#: [id number] Acct: [id number] Name: YOVANI CHAMBERS Rep #: [id number] : 1970 Provider: Dr. Fabian Oshea MD Age/Sex: 52/M Location[place] [facility] [place] Status: Signed Intake Vital Signs 04/30/2408:34 06/18/2411:27 Height 6 ft 6 ft Weight: 219 lb 2 oz 232 lb 4 oz BMI 29.7 31.5 Intake Visit Reasons: cervical spine Accompanied by: Is patient in pain?: Yes Pain scale (1-10): 6 Allergies acetaminophen [From Vicodin] Adverse Reaction (Intermediate, Verified 06/18/23 12:28) Otherhydrocodone [From Vicodin] Adverse Reaction (Intermediate, Verified 06/18/23 12:28) Otheroxycodone Adverse Reaction (Intermediate, Verified 06/18/23 12:28) Other Medications multivitamin 1 tab PO DAILY 10/31/20 [History Confirmed 06/18/23] sertraline 100 mg tablet 150 mg PO DAILY 10/31/20 [History Confirmed 06/18/23] atorvastatin 40 mg tablet 40 mg PO QHS 04/30/23 [History Confirmed 06/18/23] hydrochlorothiazide 25 mg tablet 12.5 mg PO DAILY 04/30/23 [History Confirmed 06/18/23] metoprolol succinate 50 mg tablet,extended release 24 hr 50 mg PO DAILY 04/30/23 [History Confirmed 06/18/23] gabapentin 300 mg capsule 300 mg PO QHS 05/28/23 [History Confirmed 06/18/23] meloxicam 15 mg tablet 15 mg PO DAILY 06/09/23 [History Confirmed 06/18/23] PFSH Medical History Alcohol use Anxiety Arthritis Back pain Chewing tobacco dependence DDD (degenerative disc disease), cervical Depression Heartburn High cholesterol History of hiatal hernia History of lipoma History of pain when walking HTN (hypertension) Subcutaneous mass of back Wears glasses Surgical History Hx of fasciotomy S/P carpal tunnel release Status post bilateral hernia repair Family History Mother Diabetes Hypertension Heart diseaseFather Heart disease Social History Smoking Status: Current every day smoker tobacco type: smokeless tobacco alcohol intake: never HPI cervical spine Details: This documentation accurately reflects the service provided and the decisions made by me, Dr. Fabian Oshea MD 06/18/23 1224. Part of today?s visit was documented by [ ], acting as scribe. YOVANI CHAMBERS is a 52 year old M here today for a Pre-Op. D.O.S. 06/23/2023. Anterior Cervical disc Fusion C4-C5 C5-C6 & C6-C7. Yovani continues to have neck pain with right upper extremity radiation and ongoing hand numbness. Today he also reports numbness in the left hand in the palmar aspect in the radial 3 digits but does not mention of any forearm or dorsal hand numbness. Following his his previous history.: 05/28/23: YOVANI CHAMBERS is a 52 year old M here today for a MRI Review. Patient states that their has been no changes since his MRI. Patient is using heat and ice. Patient takes Gabapentin and Ibuprofen for his pain .Yovani continues to have neck pain with right upper extremity radiation and ongoing hand numbness and progressive difficulty with balance and dexterity. He underwent an MRI and is here to review the images. Following his his previous history. 04/30/23: YOVANI CHAMBERS is a 52 year old M here today for cervical spine pain. Patient states he is not in much pain today. He states he has not been working for the last 3 weeks. Patient states he has been having cervical spine pain and issues for a few years now. Patient states when he turns his head he gets a sharp shooting pain down the right side of the neck. He does have some numbness and tingling down into his right hand down into his fingers. Patient does get numbness into both legs. Patient is not able to sleep at night, he gets a shock type of pain down into his legs as well as the numbness. Patient states when he is sitting he doesn't get as much pain. Patient states he has done physical therapy which he states made his pain worse. He states he has tried topical gels and that has not given him any relief. He has taken some OTC medications and that has not helped either. Patient states he does have arthritis in both of his hands. Patient did have a lipoma removed in his back in 2020. Patient had carpal tunnel surgery in September 2019 but the occupational therapist didn't think it was carpal tunnel that was the issue. Patient has not had any imaging done of the cervical spine. Yovani has had neck pain and right hand numbness for many months but this is severely worsened such that he has not been able to work for the last 3 weeks. He also notices that his right hand is getting weaker and is dropping small objects with his hand. 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 He feels that his right hand is no longer allowing him to do the work because of the pain numbness and weakness. His neck pain radiates into the right trapezius into the shoulder and then goes down the arm into the hand with significant numbness. He also has bilateral lower extremity numbness and low back pain. He denies any difficulty with balance. He is very able to walk her months of distances. He has not had any MRIs. He is not diabetic. He has tried tramadol without significant help. He has tried heat and local ointments with only minimal relief. He has not had any formal physical therapy or epidural injections. He declines injections. He has undergone right carpal tunnel release as well as right cubital tunnel release surgeries a few years ago which did not seem to help his numbness at all. Ortho Exam General General: Yes no acute distress Neurologic: Yes alert and Yes oriented x3 Spine SPINE TESTING CERVICAL THORACIC LUMBAR Musculoskeletal Strength 0=absent - 5=normal Details: Examination of the neck shows midline and right paraspinal tenderness in the lower neck region. Neurologic evaluation of upper extremity shows 4+ by 5 strength in finger chief reservoir engineering and finger abduction, all other muscle groups are 5 of 5 strength. Jessa's negative bilaterally. Romberg's is positive. Tandem gait shows mild imbalance. Bilateral knee reflexes are brisk. Prior carpal tunnel incision scar noted on the right side. Pain with grinding at first CMC joint noticed. Coding Level of Care Code Off vis,est,level 4 Diagnoses Cervical radiculopathy M54.12 Time Spent (min) 35 Assessment and Plan Assessment and Plan (1) Cervical radiculopathy: Status: Acute Plan I again reviewed his x-rays of the cervical spine done at the previous visit. I reviewed the MRI done recently. These show C6-7 disc height loss and disc degeneration, C4-5 and C5-6 subtle spondylolisthesis with mild dynamic instability. Reversal of cervical lordosis with apex at C5-6 noticed. MRI shows mild anterior cord indentation at C5-6 and C6-7 without any cord signal changes. Multilevel foraminal stenosis noticed worse at right C4-5, bilateral C5-6 and C6-7. I explained to him the imaging findings in detail. He does not seem to have severe cord compression but does have early myelopathic symptoms of hand dexterity and balance issues. He does have significant radiculopathy related to foraminal stenosis. Some of his hand symptoms may be attributed to residual carpal tunnel syndrome versus pain related to first CMC joint arthritis. His severe intermittent weakness through the entire right upper extremity, need to hold the arm and overhead abduction to reduce the pain, point towards more of a cervical root origin of radicular symptoms. I explained to him treatment options for her cervical radiculopathy which include continued nonoperative treat measures versus surgery. Patient says that he has had a prolonged course of physical therapy which only made the pain worse. I discussed possibility of epidural injections which the patient declined as he has never had luck with improvement with cortisone injections for other pathologies. He would not want to go to the painful process of obtaining these injections. He would like to proceed with surgical intervention, as his symptoms are affecting his quality of life and he has not been able to go back to work because of his symptoms. Surgical options were discussed in detail. C4-7 ACDF was discussed in detail. All risk benefits and alternatives were discussed. The risks include but are not limited to infection, bleeding, injury to nerves and vessels, spinal cord injury, nerve palsy, pseudoarthrosis, hardware failure, need for further surgeries, dysphagia, dysphonia, recurrent laryngeal nerve injury, Mai syndrome, adjacent segment degeneration, reoperation, DVT, pulm embolism, pneumonia, atelectasis, cardiopulmonary event. Patient understands and agrees to proceed with surgery. Consent was signed.
[2023-06-23] MEDS: Cefazolin 2 GM in 0.9% Normal Saline (100mL Bag) 100 ML IV ×3 (07:30→22:54)
--- NOTE | 2023-06-23 07:45 | RAD_ITS ---
PROCEDURE: Intraoperative imaging for anterior C4-C7 fusion. DATE OF EXAMINATION: June 23, 2023. INDICATION: Male, 52 years old. Chronic neck pain. FLUOROSCOPY TIME (if supplied): (14 seconds) minutes/seconds. 1.51 mGy. 8 images were submitted. RAD/Cerv Spine 2 or 3 Views IMPRESSION: Intraoperative imaging provided for C4-C7 anterior fusion and prosthetic disc placement. Electronically Signed: Phan Le MD at 11:02 EDT ,
--- NOTE | 2023-06-23 10:27 | OP.PCM_ITS ---
Report of Operation Date of Procedure: 06/23/23 Description of Surgical Findings:: Preoperative diagnosis: C4-7 disc degeneration, kyphosis with foraminal stenosis Postoperative diagnosis: Same Name of procedure: C4-7 anterior cervical discectomy and fusion with plate instrumentation - Anterior cervical fusion C4-5, CPT code 23996 - Anterior plate instrumentation C4-7, CPT code 44871/59 - Anterior cervical fusion C5-6, CPT code 73270/51 - Anterior cervical fusion C6-7, CPT code 39575/51 -C4-5 structural allograft bone with DBX, CPT code 92018 -C5-6 structural allograft bone with DBX, CPT code 89794 -C6-7 structural allograft bone with DBX, CPT code 67229 Attending surgeon: Fabian Oshea M.D. Anesthesia: Gen. endotracheal Estimated blood loss: 30 mL Complications: None Instrumentation used: Medtronic [place] Elite plate, LASR corticocancellous block Indications: The patient is a pleasant 52-year-old gentleman who presented with neck pain with right worse than left upper extremity radiation with weakness and numbness. MRI showed cervical kyphosis with C4-7 disc degeneration and foraminal stenosis. After failing a prolonged course of nonsurgical treatment, the patient requested surgical treatment as his symptoms were affecting his quality of life. All risks and benefits of the procedure were explained to the patient. The risks include but are not limited to infection, bleeding, injury to nerves and vessels, vertebral artery injury, spinal cord injury, paralysis, vocal cord paralysis, injury to esophagus, pseudoarthrosis, need for further procedures, adjacent segment degeneration. Procedure: The patient was identified in the preoperative suite using unique patient identifiers. Skin was marked consent was taken and all questions were answered. The patient was then brought back to the operative room and a timeout was performed. General endotracheal anesthesia was given. Intraoperative neuro monitoring leads were applied. The patient was carefully positioned supine on a regular OR table. A lateral view with a C-arm was done to identify the level and to define the incision. The anterior neck was then prepped and draped in the usual fashion. A final timeout was then performed. A transverse skin incision was taken to the left of midline. Subcutaneous tissue was then divided with Bovie. Platysma was identified and cut along the incision with scissors. The fascial interval between the sternocleidomastoid and the larynx was developed. Omohyoid was identified and retracted. The esophagus with the larynx was retracted medially to reach the prevertebral fascia. Marker x-ray was performed with bent spinal needle and disc space and levels were confirmed. Longus coli muscle was elevated on both sides at and above and below C4-7 discs. Self-retaining retractors were then placed. A long handle knife was then used to perform annulotomy at C4-5. Disc fragments were removed with the pituitary. Munith pins were placed in C4 and C5 for disc distraction. Curettes and bur was utilized to remove cartilage from the endplates. Discectomy was performed laterally up to the uncovertebral joints. Posterior osteophytes were thinned down with the bur and adequate decompression in the central and foraminal areas were performed and PLL was thinned out. Once the disc space was prepared, trials of various sizes were utilized. Thorough irrigation was given. 7 mm LASR cortical cancellous allograft bone large footprint was then fashioned in such a way that concavities were burred out inferiorly and superiorly and half cc of DBX (demineralized bone matrix) was squeezed into the cancellous portion. The graft was then inserted into the C4-5 disc space. The retractors were then repositioned and the procedure was repeated for C5-6 and C6-7 discs with complete discectomy. Graft sizes were 7 mm at with large footprint at C5-6, and 5 mm with large footprint at C6-7. The grafts were found to be in good apposition with good pullout strength. A 60 mm Medtronic [place] Elite plate was then fixed to C4-7 with 16 mm screws. A lateral x-ray was then taken to check the length of the screws. Both AP and lateral x-rays showed good positioning of plate and screws. The locking mechanism over the screw heads was then turned. Thorough irrigation was again given. Hemostasis was achieved. A Maya drain was then inserted. Closure was done with 3-0 Vicryl for the platysma and subcutaneous tissue layers and 4-0 Monocryl for the skin. Closure was done around the drain. Steri-Strips were applied and dressing was done with 4 x 4 gauze and Tegaderm. A cervical collar was then applied. The patient was then woken up from anesthesia extubated and taken to PACU in stable condition. From here, the patient will be transitioned to the floor. Intraoperative neuro monitoring was performed throughout this procedure. Motor evoked potentials were run periodically. All potentials remained at baseline throughout the procedure. I was present for the entire surgery and performed the surgery myself. Admit VTE Documentation VTE Mechan Device Prophylaxis: SCD's Procedures Musculoskeletal [id number]: Other Procedure See Report
[2023-06-23] MEDS: Ensure Surgery 237 ML LIQUID PO ×2 (13:14→16:27)
[2023-06-23] MEDS: Ketorolac 15 MG/ML Vial IV ×2 (13:15→22:53)
[2023-06-23] MEDS: Methocarbamol 500 MG Tablet 1000 MG PO ×3 (13:15→22:52)
[2023-06-23] MEDS: dexAMETHasone 4 MG/ML Vial IV ×2 (13:16→18:44)
[2023-06-23] MEDS: Lactated Ringers 1,000 ML 100 ML IV (16:16)
[2023-06-23] MEDS: Morphine 2 MG/ML Syringe IV ×2 (16:17→20:59)
--- NOTE | 2023-06-23 16:22 | PN.HOSP_ITS ---
Reason for Visit Reason for Visit: Diagnoses Encounter for other preprocedural examination (06/23/23) Subjective Subjective Patient status OR secondary to C4-7 disc generation, kyphosis and foraminal stenosis right worse than left with upper extremity weakness, paresthesias and pain prompting surgical intervention including C4-7 anterior cervical discectomy and fusion with plate instrumentation. Patient postoperatively now reporting pain 0 out of 10 but he had recent pain medication he notes. He is able to move his extremities with no paresthesias or weakness and denies any shooting pain. Patient denies fevers, chills, nausea, emesis, abdominal pain, chest pain or dyspnea. Objective Data Objective Data Vital Signs: Vital Signs Temp Pulse Resp BP Pulse Ox O2 Del Method O2 Flow Rate 98 F 73 16 150/97 H 92 Room Air 2 06/23/23 16:08 06/23/23 16:08 06/23/23 16:08 06/23/23 16:08 06/23/23 16:08 06/23/23 16:08 06/23/23 15:31 Oxygen Flow Rate (L/min) 2 Oxygen Delivery Method Room Air Weight: 230 lb 9.656 oz Body Mass Index (BMI) 31.2 Intake & Output: Intake and Output for Last 24 Hours 06/21/23 06/22/23 06/23/23 23:59 23:59 23:59 Intake Total 1262 / 1262 Balance 1262 / 1262 Lab / Micro Data Labs: Laboratory Results - last 24 hr 06/23/23 06:03: POC Glucose 83 Micro: Microbiology 06/18/23 13:20 Swab (Method) Nasal Screen MRSA/MSSA - Final Radiography Diagnostic Testing: Radiology Impression Cervical Spine X-Ray 06/23/23 07:45 IMPRESSION: Intraoperative imaging provided for C4-C7 anterior fusion and prosthetic disc placement. Electronically Signed: Phan Le MD at 11:02 EDT , Physical Exam Narrative Physical Examination: General: Awake, alert, oriented x 3 and cooperative, seated upright in the MN bedside chair, notes pain completely controlled currently Skin: Normal color, normal turgor, no icterus, no cyanosis except recent OR with dressing in place with no drainage noted on anterior dressing. HEENT: Recent OR with anterior cervical dressing in place with no drainage, neck brace in place/NC, EOMI, PERRLA, MMM. Lungs: CTA bilaterally, moderate effort, mild decrease BL bases, no rales, ronchi or wheezing. Heart: Regular rate and rhythm; no gallop, rub audible. Abdomen: Soft, obese, NTTP, ND, mildly hyperactive BS. Extremities: No cyanosis, clubbing, or edema. Neurological: Patient awake, alert, oriented as noted, cognitive function intact; pupils equally reactive to light and accommodation, cranial nerves grossly normal, moving all 4 extremities, no focal deficits, strength mildly to moderately global decreased given recent cervical neck surgery. Psychiatric: Affect appears fatigued otherwise normal, no acute evidence of depressive or anxiety feelings. Assessment & Plan Assessment/Plan (1) Cervical radiculopathy: PLAN: Plan The patient is a 52 y/o M w/ PMHx: Anxiety and Depression, Tobacco use, GERD, HTN, HLD, Obesity who presents to the [facility] 06/23[facility]23 secondary to ongoing history of upper extremity pain, paresthesias and weakness with C4-7 disc degeneration, kyphosis, foraminal stenosis with planned operative intervention discectomy and fusion. #1. Significant C4-7 disc degeneration with kyphosis and foraminal stenosis with persistent pain, paresthesias, weakness/cervical radiculopathy: Failed conservative therapies and treatments, admitted per Dr. Oshea, status post C4-7 anterior cervical discectomy and fusion with plate instrumentation, post- operative pain management, bowel regimen, DVT Prophylaxis, PT/OT/CM per Orthopedic surgery discretion. #2. Anxiety and depression: Continue patient home sertraline regimen. #3. Hypertension: Continue home regimen including hydrochlorothiazide, metoprolol, PRN hydralazine. #4. Hyperlipidemia: We will continue patient on statin therapy. #5. Tobacco Abuse: Encouraged cessation, inpatient consultation per RT, NR if desired. #6. GERD: Not on home regimen per current list, will have as needed agents added if symptoms arise. #7. DVT prophylaxis: SCDs, chemoprophylaxis per surgery discretion given recent OR. Charges/Coding Visit Charges Inpatient E&M: 47306 Subs Hosp L3
[2023-06-23] MEDS: Gabapentin 300 MG Capsule PO (22:52)
[2023-06-23] MEDS: Atorvastatin Calcium 40 MG Tablet PO (22:52)
[2023-06-23] MEDS: Senna/Docusate Sodium 1 Tablet 2 TABLET PO (22:53)
[2023-06-24] MEDS: dexAMETHasone 4 MG/ML Vial 2 MG IV ×2 (00:43→06:20)
[2023-06-24 03:53] VITALS: BP 156/91; PULSE 61; RESP 16; TEMP 36.5; O2SAT 94
[2023-06-24] MEDS: Acetaminophen 500 MG Tablet 1000 MG PO (06:21)
[2023-06-24] MEDS: Ketorolac 15 MG/ML Vial IV (06:21)
[2023-06-24 06:53] VITALS: O2SAT 93
[2023-06-24 07:33] LABS: Hematocrit 40.4 % (40-54); Hemoglobin 13.3 g/dL (13.0-16.5); Mean Corp Hgb Conc 32.9 g/dL (32-36); Mean Corpuscular Hgb 29.4 pg (27.0-32.0); Mean Corpuscular Volume 89.4 fL (80-94); Mean Platelet Vol. 10.6 fl (6.2-12.0); Platelet Count 296 K/mm3 (150-450); RBC Distribution Width CV 13.7 % (11.6-14.6); RBC Distribution Width SD 44.7 fl (35.1-43.9); Red Blood Count 4.52 M/mm3 (4.6-6.2); White Blood Count 19.9 K/mm3 (4.4-11.0)
[2023-06-24 07:36] VITALS: BP 161/95; PULSE 63; RESP 12; TEMP 36.4; O2SAT 96
[2023-06-24 07:57] LABS: Anion Gap 5 (5-15); BUN 18 mg/dL (7-18); BUN/Creat Ratio 18.5 RATIO (10-20); Calcium,Total 9.2 mg/dL (8.5-10.1); Chloride 104 mmol/L (98-107); Creatinine, Serum 0.97 mg/dL (0.70-1.30); EST Glomerular Filtration Rate 86 mL/min (>60); Est Glom Filt Rate - Afr Amer 104 mL/min (>60); Estimated Creatinine Clearance 111.39 ml/min; Glucose 137 mg/dL (74-106); Potassium 4.4 mmol/L (3.5-5.1); Sodium Level 136 mmol/L (136-145)
--- NOTE | 2023-06-24 08:01 | RAD_ITS ---
STUDY: X-RAY - CERVICAL SPINE REASON FOR EXAM: Male, 52 years old. s/p acdf -- Please do upright AP lateral TECHNIQUE: AP and lateral view(s) of the cervical spine were obtained. COMPARISON: None FINDINGS: Normal anterior atlantoaxial articulation. Normal odontoid process. Normal cervical lordosis. The patient is status post anterior fusion and prosthetic disc placement at the C4-C5, C5-C6 and C6-C7 levels. Normal disc space heights. Normal visualized intervertebral neuroforamina. The soft tissue structures are unremarkable. RAD/Cerv Spine 2 or 3 Views IMPRESSION: Status post anterior fusion at the C4-C5, C5-C6 and C6-C7 levels with prosthetic disc placement. Electronically Signed: Phan Le MD at 14:19 EDT ,
--- NOTE | 2023-06-24 10:06 | NURSING ---
TO X-RAY VIA W/CH
--- NOTE | 2023-06-24 10:17 | PCM.PN.HOSP ---
Reason for Visit Reason for Visit: Diagnoses Radiculopathy, cervical region (06/23/23) Encounter for other preprocedural examination (06/23/23) Subjective Subjective No acute events overnight. Patient seen at bedside this morning, present. Patient standing comfortably at edge of bed. Cervical neck collar in place. Reported mild pain at anterior neck incision site. Otherwise was doing well, denies any other acute concerns this morning. Was hoping to go home today. Objective Data Objective Data Vital Signs: Vital Signs Temp Pulse Resp BP Pulse Ox O2 Del Method O2 Flow Rate 97.5 F L 63 12 161/95 H 96 Room Air 2 06/24/23 07:36 06/24/23 07:36 06/24/23 07:36 06/24/23 07:36 06/24/23 07:36 06/24/23 07:36 06/23/23 15:31 Oxygen Flow Rate (L/min) 2 Oxygen Delivery Method Room Air Weight: 104.6 kg Body Mass Index (BMI) 31.2 Intake & Output: Intake and Output for Last 24 Hours 06/22/23 06/23/23 06/24/23 23:59 23:59 23:59 Intake Total 1882 / 2282 1826.55 / 1826.55 Output Total 600 / 600 Balance 1282 / 1682 1826.55 / 1826.55 Lab / Micro Data 06/24/23 06:45 06/24/23 06:45 Labs: Laboratory Results - last 24 hr 06/24/23 06:45: WBC 19.9 H, RBC 4.52 L, Hgb 13.3, Hct 40.4, MCV 89.4, MCH 29.4, MCHC 32.9, RDW Std Deviation 44.7 H, RDW Coeff of Kameron 13.7, Plt Count 296, MPV 10.6, Sodium 136, Potassium 4.4, Chloride 104, Carbon Dioxide 27.0, Anion Gap 5, BUN 18, Creatinine 0.97, Estim Creat Clear Calc 111.39, Est GFR (MDRD) Af Amer 104, Est GFR (MDRD) Non-Af 86, BUN/Creatinine Ratio 18.5, Glucose 137 H, Calcium 9.2 Micro: Microbiology 06/18/23 13:20 Swab (Method) Nasal Screen MRSA/MSSA - Final Radiography Diagnostic Testing: Radiology Impression Cervical Spine X-Ray 06/23/23 07:45 IMPRESSION: Intraoperative imaging provided for C4-C7 anterior fusion and prosthetic disc placement. Electronically Signed: Phan Le MD at 11:02 EDT , Physical Exam Narrative Physical Examination: General: Awake, alert, oriented x 3 and cooperative, standing at edge of bed, mild pain at incision sites, otherwise no discomfort or distress Skin: Normal color, normal turgor, no icterus, no cyanosis except recent OR with dressing in place with no drainage noted on anterior dressing. HEENT: Anterior cervical dressing in place with no drainage, neck brace in place/NC, EOMI, PERRLA, MMM. Lungs: CTA bilaterally, moderate effort, mild decrease BL bases, no rales, ronchi or wheezing. Heart: Regular rate and rhythm; no gallop, rub audible. Abdomen: Soft, obese, NTTP, ND, mildly hyperactive BS. Extremities: No cyanosis, clubbing, or edema. Neurological: Patient awake, alert, oriented as noted, cognitive function intact; pupils equally reactive to light and accommodation, cranial nerves grossly normal, moving all 4 extremities, no focal deficits, strength mildly to moderately global decreased given recent cervical neck surgery. Psychiatric: Affect appears fatigued otherwise normal, no acute evidence of depressive or anxiety feelings. Assessment & Plan Assessment/Plan (1) S/P cervical spinal fusion: PLAN: Plan Patient is a 52-year-old male who presented to [facility] [place]/23/[facility]23 for planned orthopedic procedure. Medicine consulted postoperatively for medical management. 1. C4-7 disc degeneration with kyphosis and foraminal stenosis ? Orthopedic surgery primary. S/p C4-7 anterior cervical discectomy and fusion with plate instrumentation with Dr. Oshea on 06/22. No intraoperative or immediate postoperative complications. Doing well on postop day 1, stable for discharge home from orthopedic standpoint. Further management per orthopedics. Chronic medical conditions: ? Anxiety and depression: Stable. Continue home sertraline. ? Hypertension: Continue home hydrochlorothiazide and metoprolol. ? Hyperlipidemia: Continue statin. ? Tobacco abuse: Encouraged cessation. Total clinical time spent by myself addressing the patient's medical issues, reviewing all the data, and collaborating with patient's care team: 25 minutes. Charges/Coding Visit Charges Inpatient E&M: 01741 Subs Hosp L1
--- NOTE | 2023-06-24 10:30 | PN.ORTHO_ITS ---
Subjective Subjective Postop day 1 status post C4-7 ACDF. Doing well. Pain well-controlled. Was able to ambulate with PT. His preoperat [place] radicular symptoms have resolved. Denies any dysphagia. Objective Data Objective Data Vital Signs: Vital Signs Temp Pulse Resp BP Pulse Ox O2 Del Method O2 Flow Rate 97.5 F L 63 12 161/95 H 96 Room Air 2 06/24/23 07:36 06/24/23 07:36 06/24/23 07:36 06/24/23 07:36 06/24/23 07:36 06/24/23 07:36 06/23/23 15:31 Oxygen Flow Rate (L/min) 2 Oxygen Delivery Method Room Air Weight: 230 lb 9.656 oz Body Mass Index (BMI) 31.2 Intake & Output: Intake and Output for Last 24 Hours 06/22/23 06/23/23 06/24/23 23:59 23:59 23:59 Intake Total 1882 / 2282 1826.55 / 1826.55 Output Total 600 / 600 Balance 1282 / 1682 1826.55 / 1826.55 Lab / Micro Data 06/24/23 06:45 06/24/23 06:45 Labs: Laboratory Results - last 24 hr 06/24/23 06:45: WBC 19.9 H, RBC 4.52 L, Hgb 13.3, Hct 40.4, MCV 89.4, MCH 29.4, MCHC 32.9, RDW Std Deviation 44.7 H, RDW Coeff of [place] 13.7, Plt Count 296, MPV 10.6, Sodium 136, Potassium 4.4, Chloride 104, Carbon Dioxide 27.0, Anion Gap 5, BUN 18, Creatinine 0.97, Estim Creat Clear Calc 111.39, Est GFR (MDRD) Af Amer 104, Est GFR (MDRD) Non-Af 86, BUN/Creatinine Ratio 18.5, Glucose 137 H, Calcium 9.2 Micro: Microbiology 06/18/23 13:20 Swab (Method) Nasal Screen MRSA/MSSA - Final Radiography Diagnostic Testing: Radiology Impression Cervical Spine X-Ray 06/23/23 07:45 IMPRESSION: Intraoperative imaging provided for C4-C7 anterior fusion and prosthetic disc placement. Electronically Signed: Phan Le MD at 11:02 EDT , Physical Exam Narrative Dressing?CDI. Maya drain was removed. New dressing was applied. Neurologic evaluation of the upper extremity shows 5 x 5 power normal shows normal sensations in all dermatomes. Assessment & Plan Assessment/Plan (1) S/P cervical spinal fusion: PLAN: Plan Postop day 1. Drain removed. X-rays reviewed. PT cleared. Blood pressure on the higher side. Okay to discharge home if it is okay from hospitalist regarding BP measurements. Collar on at all times. Follow-up in 2 weeks.
[2023-06-24 10:37] VITALS: BP 156/97; PULSE 64; RESP 18; TEMP 36.7; O2SAT 96
--- NOTE | 2023-06-24 10:48 | CASEMGMT ---
JENNIFER SAN Assessment: Face to Face with pt for initial transition planning/care coordination assessment. JENNIFER SAN introduced self and role at [facility], pt voices understanding and consents to assessment. Pt is A&O x4 and answers all questions appropriately at this time. Pt sitting up in chair in no distress with at bedside. Care providers, pharmacy, and demographics verified/updated. Admitting Dx:anterior cervical fusion C4-5, C4-5, C6-7 PCP:Antonia Specialists:dhara Oshea Pharmacy:[facility] Insurance:[employer] Prescription Benefit: yes LNOK:Johana Samayoa, ; Hafsa Nuno, dtr Living Arrangements: Pt lives with and dtr in a mobile home with 4 steps to enter with a rail on both sides. Pt reports being I in ADL's and denies concerns at home. Transportation: Pt does not drive. Pt provides transportation. DME:walk in shower, cane HHC/SNF:Denies hx of Pt states no concerns with going home at time of dc. Pt denies any alcohol, smoking or drug use. Pt denies need for OP therapy currently but will do so after follow up appt. Pt states no further concerns/needs. CM to follow. Advised pt to ask CM if any further question/concerns/needs arise, voices understanding. Pt Goal:Home Plan:Home
--- NOTE | 2023-06-24 11:13 | PHA.DC.MC.R ---
Pharmacy [facility] has performed discharge medication reconciliation and counseling for this patient. Patient would like meds delivered to [facility], called retail and spoke to [place] to request delivery. 1. ACETAMINOPHEN 500MG PO Q6 2. METHOCARBAMOL 750MG PO TID PRN PAIN/SPASMS 3. OXYCODONE 2.5-5MG PO Q6H PRN PAIN The patient's discharge medication list was reviewed for discrepancies and discrepancies were resolved. The patient was counseled on the following discharge medications and changes in medications for homegoing were reviewed. The Reason for Use, instructions for use, and potential side effects were reviewed for all new medications. The patient's questions regarding all of their medications were answered. The patient was able to verbally demonstrate an understanding of their discharge medications. Medications at Discharge Home Medications multivitamin 1 tab PO DAILY 10/31/20 sertraline 100 mg tablet 150 mg PO DAILY 10/31/20 atorvastatin 40 mg tablet 40 mg PO QHS 04/30/23 hydrochlorothiazide 25 mg tablet 12.5 mg PO DAILY 04/30/23 metoprolol succinate 50 mg tablet,extended release 24 hr 50 mg PO DAILY 04/30/23 gabapentin 300 mg capsule 300 mg PO QHS 05/28/23 meloxicam 15 mg tablet 15 mg PO DAILY 06/09/23 acetaminophen 500 mg tablet 500 mg PO Q6H 7 days #28 tabs 06/24/23 methocarbamol 500 mg tablet 750 mg (1.5 x 500 mg) PO TID PRN Pain/spasms 7 days #30 tabs 06/24/23 oxycodone 5 mg tablet 2.5 - 5 mg (0.5 - 1 x 5 mg) PO Q6H PRN pain 7 days #28 tabs 06/24/23
--- NOTE | 2023-06-24 13:56 | NURSING ---
All documentation by certified nursing attendant, Dariel Goldman, reviewed by professor of nursing, Maribel BARTHOLOMEW, RN.
== END 2023-06-24 12:09 | disposition home or self-care (01) ==
LOC: SDC 11:39 → MS3 11:39
PROVIDERS: Anesthesiology; Admitting Provider Orthopaedic Surgery Orthopaedic Surgery of the Spine; PCP Family Medicine; Referring Provider Orthopaedic Surgery Orthopaedic Surgery of the Spine; Visit Provider Orthopaedic Surgery Orthopaedic Surgery of the Spine
PROC: (CPT 22551; principal; 2023-06-23 07:00)
DX: M48.02 Spinal stenosis, cervical region (principal); E78.00 Pure hypercholesterolemia, unspecified; I10 Essential (primary) hypertension; M40.202 Unspecified kyphosis, cervical region; Z79.899 Other long term (current) drug therapy; M50.321 Other cervical disc degeneration at C4-C5 level; F17.220 Nicotine dependence, chewing tobacco, uncomplicated; M54.12 Radiculopathy, cervical region
CPT/HCPCS: 22551; 22552 ×2; 20931 ×3; 22845; 00670; 36415; 72040; 76000; 80048; 82962; 83735; 85027; 86703; 86706; 86708; 86803; 87081; 94668; 96361; 96365; 96366; 96375; 96376; 97162; 97165; 97530; 99221; 99252; 99406; C1713; J7120; G0378; G0463; J2405; J3475

== ENCOUNTER → 2023-08-11 | Outpatient (CLI) | payer OTHER, SELFPAY ==
--- NOTE | 2023-08-11 12:30 | RAD_ITS ---
EXAM: XR SACRUM AND COCCYX, 2 OR MORE VIEWS CLINICAL INDICATION: DDD TECHNIQUE: Frontal and lateral views of the sacrum and coccyx. COMPARISON: No relevant prior studies available. FINDINGS: SACRUM/COCCYX: There is a 4 mm posterior displacement of the distal sacrum/coccyx seen on the lateral view. No fractures are identified. No destructive or sclerotic lesions. Note that overlapping bowel shadows may however obscure fine detail in the frontal view. Sacroiliac joints are unremarkable. SOFT TISSUES: Unremarkable. No soft tissue swelling or gas. RAD/Sacrum-Coccyx min 2 Views IMPRESSION: Minimal posterior spondylolisthesis of coccyx. There are no acute osseous abnormalities. If indicated further evaluation with MRI may be beneficial. Electronically Signed: Dhruv Wick MD at 21:18 EDT ,
== END | disposition home or self-care (01) ==
LOC: RAD 12:21
PROVIDERS: PCP Family Medicine; Referring Provider Anesthesiology Pain Medicine; Visit Provider Anesthesiology Pain Medicine
DX: M43.10 Spondylolisthesis, site unspecified (principal)
CPT/HCPCS: 72220

== ENCOUNTER → 2023-08-20 | Outpatient (CLI) | payer OTHER, SELFPAY ==
--- NOTE | 2023-08-20 10:28 | MRI_ITS ---
STUDY: MRI LUMBAR SPINE WITHOUT CONTRAST REASON FOR EXAM: Male, 52 years old. pain TECHNIQUE: Standardized fat and water weighted pulse sequences were obtained in the sagittal and axial planes. COMPARISON: None FINDINGS: T12-L1: Normal endplates. Normal disc height, hydration and morphology. Normal bilateral facet joints. Normal central canal and bilateral lateral recesses. Normal bilateral intervertebral neural foramina. Normal lumbar lordosis. There is no substantial scoliosis. Normal conus medullaris that terminates at L1 L1-2: Normal endplates. Normal disc height, hydration and morphology. Normal bilateral facet joints. Normal central canal and bilateral lateral recesses. Normal bilateral intervertebral neural foramina. L2-3: Normal endplates. Normal disc height, hydration and morphology. Normal bilateral facet joints. Normal central canal and bilateral lateral recesses. Normal bilateral intervertebral neural foramina. L3-4: Normal endplates. Normal disc height, hydration and morphology. Normal bilateral facet joints. Normal central canal and bilateral lateral recesses. Normal bilateral intervertebral neural foramina. L4-5: Normal endplates. Normal disc height, desiccation mild annular bulge.. Mild facet arthropathy.. Normal central canal and bilateral lateral recesses. Moderate bilateral neural foraminal stenosis L5-S1: Normal endplates. Normal disc height, hydration and minor annular bulge.. Facet arthropathy. Normal central canal and bilateral lateral recesses. Minor bilateral neural foraminal encroachment Normal visualized sacral ala. Normal visualized paraspinous soft tissue structures. MRI/Spine Lumbar (Routine) IMPRESSION: No evidence for acute fracture or other significant bony pathology Disc degeneration L4-5 and spinal stenosis secondary to bulging annulus with facet arthropathy. Minor annular bulge with facet arthropathy at L5-S1 without significant spinal stenosis Electronically Signed: Joel Holloway MD at 19:33 EDT ,
== END | disposition home or self-care (01) ==
LOC: MRI 10:23
PROVIDERS: PCP Family Medicine; Referring Provider Orthopaedic Surgery Orthopaedic Surgery of the Spine; Visit Provider Orthopaedic Surgery Orthopaedic Surgery of the Spine
DX: M54.16 Radiculopathy, lumbar region (principal)
CPT/HCPCS: 72148

== ENCOUNTER 2023-12-14 11:11 | Inpatient (IN) | payer OTHER, SELFPAY ==
[2023-12-10 17:32] LABS: Anion Gap 6 (5-15); BUN 13 mg/dL (7-18); BUN/Creat Ratio 12.7 RATIO (10-20); Calcium,Total 9.4 mg/dL (8.5-10.1); Chloride 105 mmol/L (98-107); Creatinine, Serum 1.02 mg/dL (0.70-1.30); EST Glomerular Filtration Rate 81 mL/min (>60); Est Glom Filt Rate - Afr Amer 98 mL/min (>60); Glucose 138 mg/dL (74-106); Magnesium 1.9 mg/dL (1.6-2.6); Potassium 3.2 mmol/L (3.5-5.1); Sodium Level 137 mmol/L (136-145)
[2023-12-10 18:11] LABS: HIV - WCH Non-Reactive (Nonreactive); Hepatitis B Surface Antibody Non-Reactive; Hepatitis C Antibody Non-Reactive (Nonreactive)
[2023-12-12 06:09] LABS: Hepatitis A AB, Total Negative (Negative)
[2023-12-14] VITALS (15 sets, daily range): BP systolic 121–160; BP diastolic 69–100; PULSE 56–78; RESP 12–19; TEMP 35.8–37.1; O2SAT 96–100; BMI 31.4
[2023-12-14] MEDS: Acetaminophen 500 MG Tablet 1000 MG PO ×3 (06:24→21:49)
[2023-12-14] MEDS: Magnesium 2 GM for ERAS IV (06:25)
[2023-12-14] MEDS: Lactated Ringers 1,000 ML 15 ML IV (06:25)
[2023-12-14 06:26] LABS: Absolute Lymphocyte Count 1.66 X10^3/uL (0.83-4.51); Absolute Neutrophil Count 3.8 X10^3/uL (2.0-7.7); Basophil# 0.09 X10^3/uL; Basophil% 1.4 % (0-1); Eosinophil# 0.21 X10^3/uL; Eosinophils% 3.2 % (0-5); Hematocrit 42.3 % (40-54); Hemoglobin 13.9 g/dL (13.0-16.5); Lymphocyte # 1.66 X10^3/ul (0.83-4.51); Mean Corp Hgb Conc 32.9 g/dL (32-36); Mean Corpuscular Hgb 29.1 pg (27.0-32.0); Mean Corpuscular Volume 88.7 fL (80-94); Monocyte# 0.88 X10^3/uL; Monocyte% 13.2 % (0-10); NRBC Flagged by Analyzer 0 % (0-5); Neutrophil # 3.79 X10^3/uL (2.7-7.7); Neutrophil % 56.9 % (47-70); Platelet Count 278 K/mm3 (150-450); RBC Distribution Width SD 42.3 fl (35.1-43.9); Red Blood Count 4.77 M/mm3 (4.6-6.2); White Blood Count 6.7 K/mm3 (4.4-11.0)
--- NOTE | 2023-12-14 06:59 | PRE.ANES_ITS ---
ASA Classification* ASA Classification ASA Classification: 2 Assessment & Plan Anesthesia* Anesthesia Assessment Anesthesia Assessment: Discussed sedation and/or anesthesia options, risks, benefits, and alternatives with patient/parents/legal guardian/POA. Questions invited. The patient/parents/legal guardian/POA seems to understand and agrees to proceed with anesthesia plan. Reviewed the physical assessment, medical history, allergy history and patient home medications list prior to surgery/procedure/anesthetic and documented any changes. Performed airway and anesthesia risk assessments. Anesthesia Type Anesthesia Type: General Anesthesia Focused Assessment* Temperature: 97.1 F Pulse Rate: 64 Blood Pressure: 160/95 Respiratory Rate: 16 Pulse Ox: 99 Airway Assessment Mouth opens: >3 cm Mallampati Score: II Focused Labs Anesthesia Preop lab: CBC WBC 6.7 K/mm3 (4.4-11.0) 12/14/23 06:20 RBC 4.77 M/mm3 (4.6-6.2) 12/14/23 06:20 Hgb 13.9 g/dL (13.0-16.5) 12/14/23 06:20 Hct 42.3 % (40-54) 12/14/23 06:20 Plt Count 278 K/mm3 (150-450) 12/14/23 06:20 CHEMISTRY Potassium 3.2 mmol/L (3.5-5.1) L 12/10/23 16:19 Sodium 137 mmol/L (136-145) 12/10/23 16:19 Magnesium 1.9 mg/dL (1.6-2.6) 12/10/23 16:19 BUN 13 mg/dL (7-18) 12/10/23 16:19 Creatinine 1.02 mg/dL (0.70-1.30) 12/10/23 16:19 Glucose 138 mg/dL (74-106) H 12/10/23 16:19 POC Glucose 83 mg/dL (74-106) 06/23/23 06:03 COAG Pre-Assessment Diagnosis/Proposed Procedure Planned Operative Procedure(s): 360 LUMBAR FUSION L4-5 Anesthesia History 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 When Was Last Pacemaker Check QUESTION #4 FULL TEXT: You/Your Family Experience fever (hyperthermia) with Anesthesia Last Oral Intake Last Oral intake: Last Oral Intake NPO since 03:30 12/14/23 06:08 Meds taken in AM with sips of Yes 12/14/23 06:08 water? Meds patient instructed to take am of surgery PONV PONV - disc pad knockout worker: PONV - disc pad knockout worker Female No 12/10/23 08:34 HX of Motion Sickness No 12/10/23 08:34 HX of N/V After Surgery No 12/10/23 08:34 Non-Smoker No 12/10/23 08:34 Duration of Surgery greater Yes 12/10/23 08:34 than 60 minutes Number of Risk Factors 1 12/10/23 08:34 PONV Score Low Risk 12/10/23 08:34 Height & Weight Height & Weight: Anesthesia: Height & Weight Height 6 ft 12/14/23 06:08 Weight: 105 kg 12/14/23 06:08 Body Mass Index (BMI) 31.4 12/14/23 06:08 Respiratory Assessment Respiratory Assessment - disc pad knockout worker: Respiratory Tract Infection Hx - disc pad knockout worker Hx Respiratory Tract Infection No 12/10/23 08:34 STOP Sleep Apnea STOP Sleep Apnea - disc pad knockout worker: STOP Sleep Apnea - disc pad knockout worker Hx Hypertension Yes: CONTROLLED WITH MED 12/10/23 08:34 Hx Sleep Apnea No 12/10/23 08:34 CPAP BIPAP Do you snore loudly (louder Yes 12/10/23 08:34 than talking or can be heard Do you often feel tired/ No 12/10/23 08:34 fatigued/ sleepy during daytime? Has anyone observed you stop No 12/10/23 08:34 breathing during sleep? STOP Results Positive 12/10/23 08:34 QUESTION #5 FULL TEXT : Do you snore loudly (louder than talking or can be heard through closed doors)? Tobacco Use History Tobacco Use History - disc pad knockout worker: Tobacco Use History - disc pad knockout worker Tobacco Use Smoking Status Current every day smoker 12/10/23 08:34 Hx Tobacco Use Yes 12/10/23 08:34 Years Smoking Packs Smoked per Day Smoking Cessation Date was within the last 15 years Hx Smoking Cessation Date Hx Smoking Cessation No 12/10/23 08:34 Counseling Hematologic Medial History Hematologic Hx - disc pad knockout worker: Hematologic Medical Hx - special agent in charge Hx of Blood Transfusion No 12/10/23 08:34 Hx of Transfusion in last 3 No 12/10/23 08:34 Months Date of Last Transfusion (if within last 3 months) Ever experience any problems No 12/10/23 08:34 with transfusion(s)? Specify any problems Hx of Preganancy in last 3 N/A 12/10/23 08:34 Months Nurse Filling Out Transfusion DSCHRIBER 12/10/23 08:34 & Questions: Date: 12/10/23 12/10/23 08:34 Time: 08:36 12/10/23 08:34 Patient unable to answer at this time (ie. confused, unrespo /Reproduction History /Reproductive History - disc pad knockout worker: /Reproductive Hx- disc pad knockout worker Hx Now Gestational Age (in weeks): EDC: Hx Hx Para Hx Section SAB No 12/10/23 08:34 Active Medications Active Medications: Current Medications Generic Name Dose Route Start Last Admin Trade Name Freq PRN Reason Stop Dose Admin Acetaminophen 1,000 mg 12/14/23 08:00 12/14/23 06:24 Acetaminophen 500 Mg Tablet PO 12/14/23 08:01 1,000 mg X1 ONE Administration Cefazolin Sodium 2 gm/ Sodium 110 mls @ 150 mls/hr 12/14/23 08:00 Chloride IV 12/14/23 08:43 PREOP ONE Magnesium Sulfate 2 gm/ 104 mls @ 208 mls/hr 12/14/23 08:00 12/14/23 06:25 Dextrose IV 12/14/23 08:29 208 mls/hr X1 ONE Administration Lactated Ringer's 1,000 mls @ 15 mls/hr 12/14/23 06:00 12/14/23 06:25 IV 15 mls/hr .Q48H MARTIN Administration Insulin Human Lispro 1 - 6 unit 12/14/23 08:00 Insulin Lispro 100 Unit/Ml Insuln.Pen SC 12/14/23 14:00 Q4H PRN PRN BG>/= 180, SEE PROTOCOL Protocol PFSH Medical History Arthritis High cholesterol Back pain DDD (degenerative disc disease), cervical History of pain when walking Chewing tobacco dependence Depression Alcohol use History of hiatal hernia Heartburn History of lipoma Wears glasses Subcutaneous mass of back Anxiety HTN (hypertension) Home Medications ?Medication ?Instructions ?Recorded ?Last Taken ?Type multivitamin 1 tab PO DAILY SUPPLEMENT 10/31/20 12/12/23 History sertraline 100 mg tablet 150 mg PO DAILY DEPRESSION 10/31/20 12/14/23 History atorvastatin 40 mg tablet 40 mg PO QHS CHOLESTEROL 04/30/23 12/13/23 History hydrochlorothiazide 25 mg tablet 25 mg PO DAILY BP 04/30/23 12/13/23 History gabapentin 300 mg capsule 300 mg PO TID PAIN 11/19/23 12/14/23 History losartan 50 mg tablet 50 mg PO DAILY BP 11/19/23 12/14/23 History tizanidine 4 mg tablet 4 mg PO QHS PAIN 11/19/23 12/11/23 History buspirone 5 mg tablet 5 mg PO TID PRN PRN anxiety 12/10/23 12/14/23 History loratadine 10 mg tablet (Claritin) 10 mg PO DAILY ALLERGIES 12/10/23 12/13/23 History Allergy/AdvReac Type Severity Reaction Status Date / Time hydrocodone (From Vicodin) AdvReac Intermediate HEART RACES Verified 12/14/23 06:02 Family History Mother Diabetes Hypertension Heart disease Father Heart disease Surgical History Hx of fusion of cervical spine Hx of fasciotomy S/P carpal tunnel release Status post bilateral hernia repair Social History Smoking Status: Current every day smoker tobacco type: smokeless tobacco alcohol intake: never Review of Systems (Anesthesia) ROS Narrative System reviewed and no additional complaints, except as documented.
--- NOTE | 2023-12-14 07:26 | HP.PCM_ITS ---
History and Physical Date of Admission: 12/14/23 MR#: [id number] Acct: [id number] Name: YOVANI CHAMBERS Rep #: [id number] : 1970 Provider: Dr. Fabian Oshea MD Age/Sex: 53/M Location: [facility] [email or web address] Status: Signed Intake Vital Signs 06/23/2411:02 Height 6 ft Intake Visit Reasons: lumbar spine Accompanied by: Is patient in pain?: Yes Pain scale (1-10): 8 Allergies hydrocodone (From Vicodin) Adverse Reaction (Intermediate, Verified 12/10/23 15:38) HEART RACESoxycodone Adverse Reaction (Intermediate, Verified 12/10/23 15:38) HEART RACES Medications ?Medication ?Instructions ?Recorded ?Confirmed ?Type multivitamin 1 tab PO DAILY SUPPLEMENT 10/31/20 12/10/23 History sertraline 100 mg tablet 150 mg PO DAILY DEPRESSION 10/31/20 12/10/23 History atorvastatin 40 mg tablet 40 mg PO QHS CHOLESTEROL 04/30/23 12/10/23 History hydrochlorothiazide 25 mg tablet 25 mg PO DAILY BP 04/30/23 12/10/23 History meloxicam 15 mg tablet 15 mg PO DAILY PAIN 06/09/23 12/10/23 History gabapentin 300 mg capsule 300 mg PO TID PAIN 11/19/23 12/10/23 History losartan 50 mg tablet 50 mg PO DAILY BP 11/19/23 12/10/23 History tizanidine 4 mg tablet 4 mg PO QHS PAIN 11/19/23 12/10/23 History buspirone 5 mg tablet 5 mg PO DAILY PRN anxiety 12/10/23 12/10/23 History loratadine 10 mg tablet (Claritin) 10 mg PO DAILY ALLERGIES 12/10/23 12/10/23 History PFSH Medical History Arthritis High cholesterol Back pain DDD (degenerative disc disease), cervical History of pain when walking Chewing tobacco dependence Depression Alcohol use History of hiatal hernia Heartburn History of lipoma Wears glasses Subcutaneous mass of back Anxiety HTN (hypertension) Surgical History Hx of fusion of cervical spine Hx of fasciotomy S/P carpal tunnel release Status post bilateral hernia repair Family History Mother Diabetes Hypertension Heart diseaseFather Heart disease Social History Smoking Status: Current every day smoker tobacco type: smokeless tobacco alcohol intake: never HPI lumbar spine Details: This documentation accurately reflects the service provided and the decisions made by me, Dr. Fabian Oshea MD 12/10/23 1993. Part of today?s visit was documented by Rosalia ADAN , acting as scribe. YOVANI CHAMBERS is a 53 year old M here today for Pre-op. Patient is having a 360 Lumbar Fusion L4-5 dos 12/14/2023. He had a cervical fusion back in June and is doing well after that surgery. HPI from 11/19/23: YOVANI CHAMBERS is a 53 year old M here today for Lumbar pain. Patient did go and see Dr Johnson and Dr Johnson gave him 3 injections Patient states the injection lasted him about a week. September 23 he got a left sided injection that gave him relief for about a week. Last injection was October 26. Patient states when the nerve was numb he felt good and then once the numbness stopped he had pain. Patient states at night his right leg will go numb down the back of his leg. Patient is a side sleeper. HPI from 09/17/23: YOVANI CHAMBERS is a 52 year old M here today for 12 week post-op C4-7 anterior cervical discectomy and fusion with plate instrumentation DOS:06/23/23. Patient doing good, no pain in neck today. Patient states he has been doing good. Patient states his back isn't doing good. Patient did go see Dr Johnson and got 1 injections. Patient states the injection didn't even work. Patient did get his MRI done and he did PT. Patient does have pain that goes down both legs mostly right one and that goes to his calf. Patient left leg is more numb and tingling. Yovani is now 3-month status post C4-7 ACDF. His neck is doing well. He has some occasional upper back paraspinal pain which improves with local heat application and massage. He has been doing physical therapy for this. He has also had continued low back pain with the right worse than left lower extremity radiation. He has had 1 epidural injection which was likely before his lumbar spine MRI which did not seem to help. He has also been doing physical therapy for the lower back but this seems to be worsening his symptoms. Ortho Exam General General: Yes no acute distress Neurologic: Yes alert and Yes oriented x3 Spine SPINE TESTING CERVICAL THORACIC LUMBAR Musculoskeletal Strength 0=absent - 5=normal Details: Examination of the lower back shows midline and paraspinal tenderness in the mid to lower lumbar spine. Neurologic motion of lower extremity shows grade 4 left ankle dorsiflexion and grade 4 right quadriceps. Passive straight leg raise test is positive on the right. Coding Level of Care Code Off vis,est,level 4 Diagnoses Other intervertebral disc degeneration, lumbar region M51.36 Lumbar radiculopathy M54.16 S/P cervical spinal fusion Z98.1 Time Spent (min) 35 Assessment and Plan Assessment and Plan (1) Other intervertebral disc degeneration, lumbar region: Status: Acute (2) Lumbar radiculopathy: Status: Acute (3) S/P cervical spinal fusion: Status: Acute Plan Patient is here today for preop for L4-5 fusion scheduled for 12/14/23. Again reviewed prior xray and MRI which shows L4-5 disc degeneration with right worse than left mild foraminal stenosis. Again explained to him the imaging findings in detail. He has significant axial low back pain with radicular symptoms to both lower extremities which make it difficult for him to do the heavy lifting involved at work. He has gone through a prolonged nonsurgical treatment including multiple injections through pain m anagement which only helped temporarily. At this time, the patient has tried nonsurgical options with PT and pain management without improvement. He wishes to discuss surgical options as this pain continues to limit his quality of life. I recommend L4-5 anterior posterior fusion with indirect decompression. Reviewed the benefits and risks of surgery. Risks of surgery include bleeding, infection, visceral injury, ileus, hardware failure, pseudoarthrosis, adjacent segment degeneration, pneumonia, DVT, pulmonary embolism, atelectasis, gait abnormality, persistent pain, stretch injuries, chance for future surgeries. Patient understands and agrees to proceed with surgery. Explained in detail the procedure of the lumbar fusion. Discussed post surgery restrictions such as no bending, lifting, or twisting for the first 3 months. Answered all questions that he had today in preparation for next week. Patient wishes to proceed with surgery. Consent was signed. Patient is in agreement.
--- NOTE | 2023-12-14 07:35 | RAD_ITS ---
STUDY: X-RAY - LUMBAR SPINE REASON FOR EXAM: Male, 53 years old. L4-L5 FUSION TECHNIQUE: 6 intraoperative view(s) of the lumbar spine were obtained. COMPARISON: None FINDINGS: Intraoperative images demonstrate placement of the disc space and surgical fusion posteriorly at L4-5 . RAD/Lumbar Spine 2 or 3 Views IMPRESSION: Surgical fusion at L4-5 of the lumbar spine. Electronically Signed: Lion White DO at 16:48 EDT ,
[2023-12-14] MEDS: Cefazolin 2 GM in 0.9% Normal Saline (100mL Bag) 100 ML IV ×3 (07:57→23:46)
[2023-12-14 09:24] LABS: Bedside Glucose 124 mg/dL (74-106)
--- NOTE | 2023-12-14 10:48 | PCM.OPRPT ---
Report of Operation Date of Procedure: 12/14/23 Description of Surgical Findings:: Preoperative diagnosis: L4-5 disc degeneration, foraminal stenosis Postoperative diagnosis: Same Name of procedures L4-5 oblique lumbar interbody fusion (OLIF), minimally invasive left sided approach, lateral decubitus: ? L4-5 anterolateral spinal fusion 63127 ? L4-5 insertion of cage [id number] ? Bone graft aspirate left iliac crest separate incision ? Allograft cancellous chips Attending Surgeon: Dr. Fabian Oshea Estimated blood loss: 50 mL Anesthesia: General Complications: None Indications: Patient is a 53-year-old pleasant gentleman who has had a long history of low back pain and right worse than left lower extremity radiation. Xrays & MRI revealed L4-5 disc degeneration with bilateral foraminal stenosis. After undergoing a prolonged period of nonoperative treatment, the patient elected to undergo surgical decompression & fusion. All surgical options were discussed with the patient including anterior and posterior approaches. All risks and benefits associated with the procedure were explained to the patient. The risks include but are not limited to infection, bleeding, injury to nerves and vessels including major vessels like IVC and aorta, persistent paresthesia, persistent pain, dural tear, need for further procedures, adjacent segment degeneration, pseudoarthrosis, hardware failure, retrograde ejaculation, paralytic ileus, etc. Procedure: The patient was identified in the preoperative holding suite using Unique patient identifiers. Skin was marked, consent was reviewed, and all questions were answered. The patient was then brought back to the operative room. A surgical timeout was performed to make sure correct procedure was being done on the correct patient and all operative room staff were on the same page. General endotracheal anesthesia was then given to the patient. Cisneros catheter was inserted. The patient was then carefully positioned in right lateral decubitus position with the left side up on a regular OR table. Axillary roll was placed and all bony prominences were well- padded. Hip positioners were placed in the posterior buttocks and anterior sternal area. The surgical area was prepped and draped in usual fashion. Preoperative antibiotic was injected IV as preoperative antibiotic. A final timeout was then again done just before starting the procedure. A 2 inch incision oblique was taken in the left lower quadrant of the abdomen 2 fingerbreadths away from the iliac crest and the lower ribs. Sharp dissection with Bovie was carried out up to the fascia covering the external oblique. The external oblique, internal oblique and transversus abdominis muscles were split along the muscle fibers and retroperitoneal space was entered. Sponge sticks were utilized to move the bowel and peritoneum [id number]-way and psoas muscle was exposed staying within the retroperitoneal plane. MascotaNubeframe retractor system was positioned and the retractor blade was applied onto the psoas. The interval between psoas and midline structures was developed and appropriate retractors were placed. Once adequate interval was cleared, a disc space was identified and a marker x-ray was taken. This identified the L4-5 disc level. Annulotomy was done with a long handled knife. Pituitary was used to remove disc material. Curettes were used to prepare the endplates. Disc space spreaders were utilized to distract and increase the disc height. Near complete discectomy was performed. Smaller disc distractors were also used to bluntly perform a contralateral annulotomy. Trials of serially increasing sizes were used. A Jamshidi needle was used to aspirate bone marrow from the left anterior iliac crest through a separate incision and this aspirate was mixed with the allograft bone chips. A Depuy [place] cage of size of the 18 x 15 x 14 mm with 15 degrees lordosis was packed with corticocancellous allograft bone chips mixed with bone marrow aspirate. This was inserted into the L4-5 disc space. AP and lateral C-arm pictures were taken to confirm good position of the cage. Some bone chips were also packed around the cages. Screw with washer was placed into the lower L4 body with a washer partially covering the cage at L4-5. Hemostasis was confirmed. The retractor blades were removed. Closure was done in layers with a continuous strand of # 1 Vicryl in all muscle layers. 2-0 Vicryl was used for subcutaneous tissue and 4-0 for Monocryl for the skin. Steri-Strips were applied and 4 x 4 gauze and Tegaderm were applied. Surgeon: Fabian Oshea etymology teacher: Radha Rahman Admit VTE Documentation VTE Mechan Device Prophylaxis: SCD's Procedures Musculoskeletal [id number]: Other Procedure See Report
--- NOTE | 2023-12-14 10:52 | OP.PCM_ITS ---
Report of Operation Date of Procedure: 12/14/23 Description of Surgical Findings:: Preoperative diagnosis: L4-5 disc degeneration, foraminal stenosis Postoperative diagnosis: Same Name of procedures: L4-5 posterior percutaneous pedicle screw instrumented fusion, prone: ? L4-5 posterior spinal fusion 42420 ? L4-5 posterior pedicle screw instrumentation 99114 ? Allograft cancellous chips [id number] Attending Surgeon: Dr. Fabian Ohsea Estimated blood loss: 50 mL (total for entire case) Anesthesia: General Complications: None Description of procedure: After the anterior procedure was complete, the patient was then turned supine. The patient was then transferred to Nilo table in prone position. Back was prepped and draped in usual fashion. C-arm AP view was then taken. C-arm was positioned in a way that L4 was centralized and superior endplate of was parallel to the beam. Spinous process was centered between the pedicles. Midline was marked with skin marker and lateral borders of the pedicles were also marked. Skin marker was also utilized to jony transversely across the middle of the pedicles at L4. 2 longitudinal paramedian incisions of 1 inch were placed. The fascia was incised vertically. Finger dissection was utilized to palpate the transverse process and facet joint. Viper Prime screws with towers were inserted and docked onto the transverse processes. This was then slowly moved medially to reach the superior articular process of L4. This was then confirmed on C-arm and then a mallet was utilized to drive the trocar into the pedicle going up to the medial wall of the pedicle on AP view. This was performed both sides. C-arm lateral view confirmed that the tip of the trocar was in the vertebral body, and the screw was advanced into the pedicle and vertebral body. This was repeated similarly at L5 bilaterally. Screw sizes were 7 x 50 mm at L4 and L5 on both sides. 50 mm precontoured titanium 5.5 mm lordotic rc on the right and 45 mm on the left were then passed through the screw extensions and reduced down to the screws with the help of [employer] instrumentation system on both sides. AP and lateral view of the C-arm showed good positioning of the screws and cages. Final tightening with the torque screwdriver was then completed. [place] was utilized to roughen the facet joint at L4-5 on the right side. Cancellous allograft bone chips mixed with bone marrow aspirate were then placed over this decorticated area. Hemostasis was achieved. Closure was done in layers with 0 Vicryls for the fascia, 2-0 Vicryls for the subcutaneous tissue, and Monocryl for the skin. Dermabond was applied. Dressings were applied covered with Tegaderm. The patient was then turned supine onto a hospital bed. The patient was extubated and taken to PACU in stable condition. The patient tolerated the procedure well and no complications occurred. Depuy [place] cage & Viper Prime minimally invasive pedicle screw instrumentation system was utilized in this case. No dural tear was identified intraoperatively. I was present for the entirety of the case and performed the surgery. Surgeon: Fabian Oshea machine stitcher: Radha Rahman Admit VTE Documentation VTE Mechan Device Prophylaxis: SCD's Procedures Musculoskeletal [id number]: Other Procedure See Report
[2023-12-14] MEDS: Ropivacaine 0.5% 30 ML Vial (11:02)
--- NOTE | 2023-12-14 11:20 | PCM.POST.ANE ---
Anesthesia: Postop Eval I Current Vital Signs Temperature: 96.8 F Pulse Rate: 78 Blood Pressure: 141/92 Respiratory Rate: 18 Pulse Ox: 96 Assessment Airway patent: Yes Spontaneous unlabored respirations: Yes nausea: No Vomiting: No Anesthesia Complication: No Fluid Hydration Crystalloid volume administer (ml): 1,100 Total IV fluid infused: 1,100 Progress Note Anesthesia document: Postop Eval 1 completed: Yes
--- NOTE | 2023-12-14 11:49 | POSTOPAN2_ITS ---
Anesthesia Postop Eval I Sum Postop Eval Completion status Anesthesia document: Postop Eval 1 completed: Yes Anesthesia Postop Eval I Summary Anesthesia Postop Eval I Summary: Anesthesia Postop Eval I: Assessment Summary Airway patent Yes 12/14/23 11:21 BENCH BORING MACHINE OPERATOR.CSIR Spontaneous unlabored Yes 12/14/23 11:21 BENCH BORING MACHINE OPERATOR.CSIR respirations Mental status nausea No 12/14/23 11:21 BENCH BORING MACHINE OPERATOR.CSIR Vomiting No 12/14/23 11:21 BENCH BORING MACHINE OPERATOR.CSIR Anesthesia Postop Eval I: Fluid Summary Crystalloid volume administer 1,100 12/14/23 11:21 BENCH BORING MACHINE OPERATOR.CSIR (ml) Colloids volume administered ( ml) Blood Product volume administered (ml) Total IV fluid infused 1,100 12/14/23 11:21 BENCH BORING MACHINE OPERATOR.CSIR Anesthesia Postop Eval I: Summary Notes Anesthesia Complication No 12/14/23 11:21 BENCH BORING MACHINE OPERATOR.CSIR Anesthesia Complication Comment: Post-operative progress note Anesthesia: Postop Eval II Evaluation Mental status: Awake Pain Level: 3 nausea: No Vomiting: No
--- NOTE | 2023-12-14 11:49 | PCM.POSTANE2 ---
Anesthesia Postop Eval I Sum Postop Eval Completion status Anesthesia document: Postop Eval 1 completed: Yes Anesthesia Postop Eval I Summary Anesthesia Postop Eval I Summary: Anesthesia Postop Eval I: Assessment Summary Airway patent Yes 12/14/23 11:21 DICTAPHONE OPERATOR.CSIR Spontaneous unlabored Yes 12/14/23 11:21 DICTAPHONE OPERATOR.CSIR respirations Mental status nausea No 12/14/23 11:21 DICTAPHONE OPERATOR.CSIR Vomiting No 12/14/23 11:21 DICTAPHONE OPERATOR.CSIR Anesthesia Postop Eval I: Fluid Summary Crystalloid volume administer 1,100 12/14/23 11:21 DICTAPHONE OPERATOR.CSIR (ml) Colloids volume administered ( ml) Blood Product volume administered (ml) Total IV fluid infused 1,100 12/14/23 11:21 DICTAPHONE OPERATOR.CSIR Anesthesia Postop Eval I: Summary Notes Anesthesia Complication No 12/14/23 11:21 DICTAPHONE OPERATOR.CSIR Anesthesia Complication Comment: Post-operative progress note Anesthesia: Postop Eval II Evaluation Mental status: Awake Pain Level: 3 nausea: No Vomiting: No
[2023-12-14] MEDS: Morphine 4 MG/ML Syringe IV (13:14)
[2023-12-14] MEDS: Gabapentin 300 MG Capsule PO ×2 (15:08→21:48)
[2023-12-14] MEDS: oxyCODONE 5 MG Tablet PO ×2 (15:08→21:49)
[2023-12-14] MEDS: Methocarbamol 500 MG Tablet 1000 MG PO ×3 (15:09→21:49)
[2023-12-14] MEDS: Ensure Surgery 237 ML LIQUID PO (18:04)
[2023-12-14] MEDS: Ketorolac 15 MG/ML Vial IV ×2 (18:05→23:45)
[2023-12-14] MEDS: Atorvastatin Calcium 40 MG Tablet PO (21:48)
[2023-12-14] MEDS: Senna/Docusate Sodium 1 Tablet 2 TABLET PO (21:49)
[2023-12-15 01:16] VITALS: BP 137/92; PULSE 73; RESP 16; TEMP 36.6; O2SAT 94
[2023-12-15 05:18] VITALS: BP 158/96; PULSE 60; RESP 16; TEMP 36.5; O2SAT 97
[2023-12-15] MEDS: oxyCODONE 5 MG Tablet PO (05:21)
[2023-12-15] MEDS: Gabapentin 300 MG Capsule PO ×2 (05:22→13:23)
[2023-12-15] MEDS: Ketorolac 15 MG/ML Vial IV (05:23)
[2023-12-15] MEDS: Acetaminophen 500 MG Tablet 1000 MG PO ×2 (05:23→13:23)
[2023-12-15 06:59] LABS: Hemoglobin 12.7 g/dL (13.0-16.5); Mean Corp Hgb Conc 33.4 g/dL (32-36); Mean Corpuscular Hgb 29.9 pg (27.0-32.0); Mean Corpuscular Volume 89.4 fL (80-94); Mean Platelet Vol. 10.3 fl (6.2-12.0); Platelet Count 258 K/mm3 (150-450); RBC Distribution Width CV 13.3 % (11.6-14.6); RBC Distribution Width SD 43.8 fl (35.1-43.9); Red Blood Count 4.25 M/mm3 (4.6-6.2); White Blood Count 13.1 K/mm3 (4.4-11.0)
--- NOTE | 2023-12-15 07:00 | RAD_ITS ---
EXAM: XR LUMBOSACRAL SPINE, 2 OR 3 VIEWS CLINICAL INDICATION: s/p lumbar fusion -- please do upright AP and LAT TECHNIQUE: Frontal and lateral views of the lumbar spine and sacrum. COMPARISON: Lumbar spine x-rays 08/18/2023. FINDINGS: VERTEBRAE: Status post posterior fusion with pedicle screws and rods and an intervertebral spacer at L4-L5. Normal alignment of the lumbar spine. Preserved vertebral body height. No fracture. No spondylolisthesis. Preservation of the normal lumbar lordosis. DISC SPACES: No acute findings. Disc spaces are maintained. GASTROINTESTINAL TRACT: Unremarkable as visualized. Included bowel gas pattern is non-obstructive. RAD/Lumbar Spine 2 or 3 Views IMPRESSION: Status post posterior fusion with pedicle screws and rods and an intervertebral spacer at L4-L5. Normal alignment of the lumbar spine. Electronically Signed: Trell Scott MD at 7:42 EDT ,
[2023-12-15 08:12] LABS: Anion Gap 8 (5-15); BUN 13 mg/dL (7-18); BUN/Creat Ratio 13.7 RATIO (10-20); Calcium,Total 9.1 mg/dL (8.5-10.1); Chloride 104 mmol/L (98-107); Creatinine, Serum 0.95 mg/dL (0.70-1.30); EST Glomerular Filtration Rate 89 mL/min (>60); Est Glom Filt Rate - Afr Amer 107 mL/min (>60); Estimated Creatinine Clearance 112.64 ml/min; Glucose 112 mg/dL (74-106); Potassium 3.8 mmol/L (3.5-5.1); Sodium Level 138 mmol/L (136-145)
[2023-12-15 09:18] VITALS: BP 147/83; PULSE 70; RESP 18; TEMP 36.6; O2SAT 97
[2023-12-15] MEDS: Multivitamins,Therapeutic Tablet 1 TABLET PO (09:28)
[2023-12-15] MEDS: Senna/Docusate Sodium 1 Tablet 2 TABLET PO (09:28)
[2023-12-15] MEDS: Sertraline 100 MG Tablet 150 MG PO (09:28)
[2023-12-15] MEDS: hydroCHLOROthiazide 25 MG Tablet PO (09:29)
[2023-12-15] MEDS: Methocarbamol 500 MG Tablet 1000 MG PO ×2 (09:29→13:23)
[2023-12-15] MEDS: Loratadine 10 MG Tablet PO (09:29)
[2023-12-15] MEDS: Losartan Potassium 50 MG Tablet PO (09:29)
[2023-12-15] MEDS: Meloxicam 15 MG Tablet PO (09:29)
--- NOTE | 2023-12-15 11:14 | CASEMGMT ---
Addendum entered by Sugey Bunch 12/15/23 12:18: JENNIFER SAN into pt room, pt does need a FWW. RN MENA delivered to room, pt signed consignment form. Referral sent to [employer] via [employer] at this time. Original Note: JENNIFER SAN Assessment: Face to Face with pt for initial transition planning/care coordination assessment. RN MENA introduced self and role at [facility], pt voices understanding and consents to assessment. Pt is A&O x4 and answers all questions appropriately at this time. Pt sitting up in chair in no distress with at bedside. Care providers, pharmacy, and demographics verified/updated. Admitting Dx: 360 Lumbar fusion L4-5 Strata Score: 1 PCP:Antonia Specialists:dhara Oshea Pharmacy: [facility] Retail Insurance: [employer] Prescription Benefit: yes LNOK: Johana Samayoa, ; Hafsa Brysonlroy, dtr Living Arrangements: Pt lives with and 44 year old disable dtr in a single story home with 4 steps to enter with a rail. Pt reports he is typically I in ADLs and denies concerns at home. Transportation: Pt transports pt. DME:walk in shower, pt is borrowing an elevated toilet seat HHC/SNF: Denies hx of Pt states no concerns with going home at time of dc. Pt is requesting a FWW. Provided pt with a local in network list of DME companies, pt chose [employer]. Pt states she first wants to check to see if they can borrow one. They are aware to notify JENNIFER SAN to make aware if a FWW is needed. Pt states no further concerns/needs. CM to follow. Advised pt to ask CM if any further question/concerns/needs arise, voices understanding. Pt Goal: Home Plan: Home, follow for FWW Don RODRIGUEZ CM
--- NOTE | 2023-12-15 11:51 | PCM.PN.ORT ---
Subjective Subjective Seen with Dr. Oshea. Patient is doing well after lumbar fusion. POD 1. His pain has been well managed with his current regimen. He has walked with therapy and is cleared to return home. He has passed gas and tolerated a solid meal. Objective Data Objective Data Vital Signs: Vital Signs Temp Pulse Resp BP Pulse Ox O2 Del Method O2 Flow Rate 97.9 F 70 18 147/83 H 97 Room Air 4 12/15/23 09:18 12/15/23 09:18 12/15/23 09:18 12/15/23 09:18 12/15/23 09:18 12/15/23 11:41 12/14/23 15:01 FiO2 97 12/14/23 13:36 Oxygen Flow Rate (L/min) 4 Oxygen Delivery Method Room Air Weight: 231 lb 7.766 oz Body Mass Index (BMI) 31.4 Intake & Output: Intake and Output for Last 24 Hours 12/13/23 12/14/23 12/15/23 23:59 23:59 23:59 Intake Total 1124 / 1124 510 / 510 Output Total 650 / 1050 400 / 400 Balance 474 / 74 110 / 110 Lab / Micro Data 12/15/23 06:30 12/15/23 06:30 Labs: Laboratory Results - last 24 hr 12/15/23 06:30: WBC 13.1 H, RBC 4.25 L, Hgb 12.7 L, Hct 38.0 L, MCV 89.4, MCH 29.9, MCHC 33.4, RDW Std Deviation 43.8, RDW Coeff of Kameron 13.3, Plt Count 258, MPV 10.3, Sodium 138, Potassium 3.8, Chloride 104, Carbon Dioxide 25.0, Anion Gap 8, BUN 13, Creatinine 0.95, Estim Creat Clear Calc 112.64, Est GFR (MDRD) Af Amer 107, Est GFR (MDRD) Non-Af 89, BUN/Creatinine Ratio 13.7, Glucose 112 H, Calcium 9.1 Micro: Microbiology 12/10/23 16:19 Swab (Method) Nasal Screen MRSA/MSSA - Final Radiography Diagnostic Testing: Radiology Impression Lumbar Spine X-Ray 12/14/23 07:35 IMPRESSION: Surgical fusion at L4-5 of the lumbar spine. Electronically Signed: Lion White DO at 16:48 EDT , Lumbar Spine X-Ray 12/15/23 07:00 IMPRESSION: Status post posterior fusion with pedicle screws and rods and an intervertebral spacer at L4-L5. Normal alignment of the lumbar spine. Electronically Signed: Trell Scott MD at 7:42 EDT , Physical Exam Narrative Physical exam shows 5 power in all muscle groups except 4+ in left knee extension. Says that he has some left sided leg pain. Tegaderm and gauze intact over belly and back incisions. Left back and belly tegaderm are peeling back. Right back incision with some discharge noticed through gauze. Normal sensation across all dermatomes. Assessment & Plan Assessment/Plan (1) S/P cervical spinal fusion: PLAN: Plan Patient has passed flatus, tolerated a solid meal, has well controlled pain, and cleared by PT to return home. Signed off on walker with director of casework services. Discharge ready. Follow up in 2 weeks.
== END 2023-12-15 14:00 | disposition home or self-care (01) | DRG 448 ==
PROVIDERS: Student in an Organized Health Care Education/Training Program; Admitting Provider Orthopaedic Surgery Orthopaedic Surgery of the Spine; PCP Family Medicine; Referring Provider Orthopaedic Surgery Orthopaedic Surgery of the Spine; Visit Provider Orthopaedic Surgery Orthopaedic Surgery of the Spine
PROC: 0SG00A0 Fusion of Lumbar Vertebral Joint with Interbody Fusion Device, Anterior Approach, Anterior Column, Open Approach (ICD-10-PCS; principal; 2023-12-14 07:00)
DX: M51.362 Other intervertebral disc degeneration, lumbar region with discogenic back pain and lower extremity pain (principal); E78.00 Pure hypercholesterolemia, unspecified; I10 Essential (primary) hypertension; F32.A Depression, unspecified; M54.16 Radiculopathy, lumbar region; F17.220 Nicotine dependence, chewing tobacco, uncomplicated; M48.061 Spinal stenosis, lumbar region without neurogenic claudication; Z98.1 Arthrodesis status; Z79.899 Other long term (current) drug therapy
CPT/HCPCS: 36415; 72100; 76000; 80048; 82962; 83735; 85025; 85027; 86703; 86706; 86708; 86803; 86850; 86900; 86901; 87081; 94668; 97162; C1713; J7120

== ENCOUNTER 2024-09-22 14:30 | Outpatient (RCR) | payer OTHER, SELFPAY ==
--- NOTE | 2024-07-19 14:53 | HP.PTEVAL_ITS ---
Patient's Visit Information Visit Information Visit Information: ANGÉLICA CHAMBERS is a 53 year old M referred to Physical Therapy by Dr. Fabian Oshea MD with a diagnosis of CHRONIC NECK AND BACK PAIN. Date of Evaluation: 06/30/24 Physical Therapist: Deysi Bueno, PT, Cert MDT Visit Plan Frequency: 2x /Week Duration: 2-4 Months Plan: INSTRUCT IN SUPINE ISO ABDOMINALS AND SUPINE DOUG LE DURAL STRETCHING (90/90 POSITION) NEXT VISIT FOR HOME. AQUATIC THERAPY FOR NECK AND BACK PAIN RELIEF IN A REDUCED WEIGHT BEARING ENVIRONMENT. POSTURE CORRECTION/STRENGTHENING, INSTRUCTION IN APPROPRIATE BODY MECHANICS AND ACTIVITY MODIFICATIONS. DLS STARTING WITH A NEUTRAL SPINE PROGRESSING ROM TOLERATED. DOUG UE AND LE ROM, STRETCHING AND STRENGTHENING. NECK ROM AND STRENGTHENING. HEP INSTRUCTION. 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 Disability: YES - SHORT TERM THROUGH WORK. Present symptoms: NECK PAIN. DENIES DOUG UE SX'S. LOW BACK PAIN. R THIGH, LEG, AND FOOT PAIN AND TINGLING. L THIGH NUMBNESS. Present since: CHRONIC NECK AND BACK PAIN Pain Scale: NECK: WORST 5/10, LEAST 0/10, CURRENT 0/10. LOW BACK: WORST 8/1 0, LEAST 4/10, CURRENT 4/10 Is it getting better, worse or staying the same: NECK - WORST, LOW BACK - STAYING THE SAME Commenced as a result of: NO APPARENT REASON OTHER THAN WORK. Worse: BOUNCING ON TOW MOTOR AT WORK, WALKING ON CONCRETE ALL DAY AT WORK, WALKING, MAKING PALLETS AT WORK/FLIPPING THEM - BOARDS WEIGH 3-4 LBS EA. Better: STRETCHES LEARNED IN PT - SITTING AND LEANING FORWARD, GABAPENTIN, ICE Disturbed sleep: SOMETIMES. SOMETIMES WAKE UP WITH LEGS NUMB AND TINGLY. Previous history/Previous treatment: NECK FUSION JUNE 2023 AND ONE LUMBAR FUSION 6 MONTHS AGO. PAIN MGMT. LUMBAR GEN'S WITH THE LAST ONE BEING BEFORE SX. Treatment this episode: REFERRED TO PT AND PAIN MGMT. GABAPENTIN. OTC MOTRIN. Coughing/sneezing/straining: NEGATIVE FOR INCREASED PAIN. Dizziness: NO Tinnitus: NO Nausea: NO Shortness of Breath: NO Difficulty Swallowing: NO Gait: INDEP. STATES HE CAN WALK ABOUT A MILE. DENIES FALLING. Bowel or Bladder Dysfunction: NO Accidents: NO Unexplained weight loss: NO Imaging: RECENT NECK AND BACK X-RAYS. SEE [facility] EMR. NO FURTHER SURGERY RECOMMENDED AT THIS POINT. NO MRI'S ORDERED AT THIS POINT. LUMBAR X-RAY 06/23/24: FINDINGS: Vertebrae: Normal vertebral body heights. No finding of fracture. Discs: Mild multilevel disc space narrowing. Alignment: L4-L5 posterior and interbody instrumented fusion and L4 inferior endplate screw. No spondylolisthesis. RAD/Lumbar Spine 2 or 3 Views IMPRESSION: Uncomplicated appearance of L4-5 instrumented fusion. NECK X-RAY 06/23/24: Vertebrae: Vertebral body heights are maintained. disc spaces: C4-C5-C6-C7 ACDF without spondylolisthesis. No lucency to suggest loosening. C2-3 and C3-4 disc spaces appear normal. soft tissues: No significant prevertebral soft tissue swelling. RAD/Cerv Spine 2 or 3 Views IMPRESSION: Uncomplicated appearance of C4-C7 ACDF. PMH/Recent major surgery: SLEEP APNEA, HIGH CHOLESTEROL, HTN, 2 HERNIA SX'S, ANXIETY, DEPRESSION, CARPAL TUNNEL RELEASE. Pain NECK PAIN: Pain Intensity (Out of 10): 6 LOW BACK: Pain Intensity (Out of 10): 8 Comment: BELOW WHERE HE DID THE SURGERY Objective Objective: Sitting/Standing Posture: POOR. FH. ROUNDED SHL'S. VERY SLOUCHED W/O CUEING. ABLE TO PARTIALLY CORRECT BUT DOES NOT MAINTAIN. NO TORTICOLLIS. REDUCED LORDOSIS. NO RELEVANT LATERAL SHIFT. Other Observations: INDEP GAIT AND TRANSFERS. Sensory deficit: DOUG UE AND LE LIGHT TOUCH SENSATION GROSSLY INTACT AND SYMMETRICAL ROM deficit: DOUG SHLD STIFFNESS WITH ELEVATION ACTIVELY TO 155 DEG R AND 150 DEG LEFT. DOUG LE HS AND CALF TIGHTNESS R>L. 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 PATIENT IS R HAND DOMINANT BUT HAS A HX OF R UE SX. DOUG UE AND LE GROSSLY 5/5 EXCEPT SHLDS GROSSLY 4/5 AND HIPS 4/5. Dural Signs: POSITIVE R LE Lumbar mvmt loss: flex - MOD ext - JESSIE R SG - MOD L SG - JESSIE PATIENT C/O INCREASED LBP WITH LUMBAR ROM TESTING ALL PLANES - NW A RESULT. Cervical Mvmt Loss: Flex: NIL Pro: NIL Ext: MOD Ret: JESSIE RSB: MOD LSB: MOD R Rot: MOD L Rot: MOD PATIENT C/O INCREASED PAIN WITH ROM TESTING ALL PLANES BUT NW A RESULT. Postural strength: FAIR Core strength: FAIR Palpation: INCREASED MUSCLE TONE THROUGHOUT PARASPINALS. C/O ACUTE LUMBAR SPINE TENDERNESS BUT NOT CERVICAL OR THORACIC. Balance/Special Test Scores Oswestry Low Back Score: 22 Oswestry Neck Score: 13 Goals Goal 1:: DECREASE C/O NECK PAIN BY AT LEAST 50% TO EASE ADL AND WORK FUNCTION Goal Time Frame: 4-6 Weeks Goal 2:: DECREASE C/O LOW BACK AND R LE SX'S TO EASE ADL AND WORK FUNCTION Goal Time Frame: 4-6 Weeks Goal 3:: INCREASE PAINFREE NECK ROM TO EASE ADL AND WORK FUNCTION Goal Time Frame: 4-6 Weeks Goal 4:: INCREASE PAINFREE LUMBAR ROM TO EASE ADL AND WORK FUNCTION Goal Time Frame: 4-6 Weeks Goal 5:: INCREASE CORE STRENGTH INCLUDING HIPS AND SHLDS TO ALLOW FOR SAFE INCREASED LIFTING ABILITY FOR INCREASED WORK LIMITS. Goal Time Frame: 6-8 Weeks Goal 6:: AT LEAST 5 POINT IMPROVEMENT ON NECK OSWESTRY SCORE AND 10 POINT IMPROVEMENT ON BACK OWSWESTRY QUESTIONNAIRE SCORE. Goal Time Frame: 8-12 Weeks Rehabilitation Potential Physical Therapy Diagnosis: NECK, TRUNK, POSTURAL, UE AND LE STIFFNESS WITH CORE WEAKNESS AND C/O PAIN LIMITING WORK FUNCTION. Rehabilitation Potential: Fair Anticipated Interventions Patient/Client Instruction: Educate patient on: Condition, Plan of Care and Risk Factors For the Purpose of:: To improve self management Therapeutic Exercise to Include: Strength training, Body mechanics, Postural training, Flexibilty training, Neuromotor development, In an aquatic setting, Dynamic Lumbar Stabilization and Scapular Strength/Stabilization For the Purpose of:: To decrease pain, To improve muscle performance and motor function, To increase tolerance to activity/condition/position, To improve ability of physical actions for home/community/work/leisure, To decrease soft tissue restriction, To increase flexibility/ROM and To improve self management Text: Thank you for the opportunity to evaluate your patient. For Medicare and Medicare HMO plans, please review the plan of care and approve it. It will need to be FAXED BACK to us at [phone] for Medicare purposes. For Medicare only, by signing this I certify the plan of care. Please let me know if there are questions or concerns regarding this plan of care. Physician Signature: Date:
--- NOTE | 2024-09-06 15:18 | HP.PTREVAL_ITS ---
Re-Evaluation Intro: Dr. Fabian Oshea MD, It has been my pleasure to treat ANGÉLICA CHAMBERS over the last 9 visits for CHRONIC NECK AND BACK PAIN. Please see the progress note below for an update on the physical therapy plan of care! Subjective Subjective: PATIENT REPORTS DECREASED NECK AND PAIN IN THE WATER AND UNTIL RETURN TO WORK. STATES THE HOME EX'S HELP AFTER THE WATER SESSIONS TOO. DENIES ANY NEW SX'S SINCE STARTING PT. HE PRESENTS TO PT WITH HIS TODAY AND THEY REPORT HE HAS BEEN RELEASED BY DR. 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 HE HAD A CONSULT WITH DR. MESA 08/23/24 AND STATE HE WAS DX'D WTTH PINCHED NERVE WITH PLANED INJECTION 09/30/24. HE WOULD LIKE TO CONTINUE AQUATIC THERAPY IN HOPES OF GETTING MORE BENEFIT WITH TIME. PENDING F/U WITH DR. OSHEA 12/15/[address] 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 PATIENT REPORTS THAT IS HIS GOAL. REPORTS DR. OSHEA TOLD HIM IF PT AND PAIN MGMT DO NOT WORK HE MAY NEED ANOTHER MRI AND MORE SURGERY. Objective Objective/Function: PATIENT WAS SEEN TODAY FOR RE-ASSESSMENT OF PROGRESS TOWARD THE SET PT GOALS AND THE NEED FOR FURTHER PHYSICAL THERAPY VS READINESS FOR DISCHARGE. THIS PATIENT IS TOLERATING AQUATIC THERAPY WELL, HAS MADE SOME SMALL IMPROVEMENT AND IS SHOWING POTENTIAL FOR MORE IMPROVMENT. HE WOULD LIKE TO CONTINUE AQUATIC THERAPY. HE IS A GOOD CANDIDATE TO CONTINUE BASED ON POTENTIAL FOR IMPROVEMENT ESPECIALLY INCONJUNCTION WITH PAIN MGMT. UPON EXAM TODAY: Sensory deficit: DOUG UE AND LE LIGHT TOUCH SENSATION GROSSLY INTACT AND SYMMETRICAL ROM deficit: DOUG SHLD STIFFNESS WITH ELEVATION ACTIVELY TO 158 DEG R AND 154 DEG LEFT. DOUG LE HS AND CALF TIGHTNESS R>L. 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 PATIENT IS R HAND DOMINANT BUT HAS A HX OF R UE SX. DOUG UE AND LE GROSSLY 5/5 EXCEPT SHLDS GROSSLY 4/5 AND HIPS 4/5. Dural Signs: NEGATIVE DOUG LE'S. Lumbar mvmt loss: flex - MOD ext - JESSIE R SG - MOD L SG - JESSIE PATIENT C/O INCREASED LBP WITH LUMBAR ROM TESTING ALL PLANES - NW A RESULT. Cervical Mvmt Loss: Flex: NIL Pro: NIL Ext: MOD Ret: MOD RSB: MOD LSB: MOD R Rot: MIN L Rot: MOD PATIENT C/O INCREASED PAIN WITH ROM TESTING ALL PLANES BUT NW A RESULT. Postural strength: FAIR Core strength: FAIR Palpation: INCREASED MUSCLE TONE THROUGHOUT PARASPINALS. C/O ACUTE LUMBAR SPINE TENDERNESS BUT NOT CERVICAL OR THORACIC. Plan Plan Plan: CONTINUE 2X'S A WK 18 TO 24 VISITS FOR AQUATIC THERAPY FOR NECK AND BACK PAIN RELIEF IN A REDUCED WEIGHT BEARING ENVIRONMENT. POSTURE CORRE CTION/STRENGTHENING, INSTRUCTION IN APPROPRIATE BODY MECHANICS AND ACTIVITY MODIFICATIONS. DLS STARTING WITH A NEUTRAL SPINE PROGRESSING ROM TOLERATED. DOUG UE AND LE ROM, STRETCHING AND STRENGTHENING. NECK ROM AND STRENGTHENING. HEP INSTRUCTION. Balance/Gait/Functional tests Balance/Special Test Scores Oswestry Low Back Score: 15 Oswestry Neck Score: 13 Goals Goals Goal 1:: DECREASE C/O NECK PAIN BY AT LEAST 50% TO EASE ADL AND WORK FUNCTION Goal Time Frame: 4-6 Weeks Goal Progress: Progressing Goal 2:: DECREASE C/O LOW BACK AND R LE SX'S TO EASE ADL AND WORK FUNCTION Goal Time Frame: 4-6 Weeks Goal Progress: Progressing Goal 3:: INCREASE PAINFREE NECK ROM TO EASE ADL AND WORK FUNCTION Goal Time Frame: 4-6 Weeks Goal Progress: Progressing Goal 4:: INCREASE PAINFREE LUMBAR ROM TO EASE ADL AND WORK FUNCTION Goal Time Frame: 4-6 Weeks Goal Progress: Progressing Goal 5:: INCREASE CORE STRENGTH INCLUDING HIPS AND SHLDS TO ALLOW FOR SAFE INCREASED LIFTING ABILITY FOR INCREASED WORK LIMITS. Goal Time Frame: 6-8 Weeks Goal Progress: Progressing Goal 6:: AT LEAST 5 POINT IMPROVEMENT ON NECK OSWESTRY SCORE AND 10 POINT IMPROVEMENT ON BACK OWSWESTRY QUESTIONNAIRE SCORE. Goal Time Frame: 8-12 Weeks Goal Progress: Progressing Anticipated Interventions Anticipated Interventions Patient/Client Instruction: Educate patient on: Condition, Plan of Care and Risk Factors For the Purpose of:: To improve self management Therapeutic Exercise to Include: Strength training, Body mechanics, Postural training, Flexibilty training, Neuromotor development, In an aquatic setting, Dynamic Lumbar Stabilization and Scapular Strength/Stabilization For the Purpose of:: To decrease pain, To improve muscle performance and motor function, To increase tolerance to activity/condition/position, To improve ability of physical actions for home/community/work/leisure, To decrease soft tissue restriction, To increase flexibility/ROM and To improve self management Re-Evaluation Ending Re-evaluation ending: Please do not hesitate to contact me at [phone] by phone or if you have questions or concerns regarding this new plan of care! Sincerely, Deysi Bueno, PT, Cert MDT
--- NOTE | 2024-11-08 13:25 | HP.PT.NRP ---
Patient Information Patient Information: ANGÉLICA CHAMBERS was seen in my office for initial evaluation on 06/30/24. The following Plan of Care was established for this patient: POC Established Initial Frequency: 2x /Week Initial Duration: 2-4 Months Anticipated Interventions Patient/Client Instruction: Educate patient on: Condition, Plan of Care and Risk Factors For the Purpose of:: To improve self management Therapeutic Exercise to Include: Strength training, Body mechanics, Postural training, Flexibilty training, Neuromotor development, In an aquatic setting, Dynamic Lumbar Stabilization and Scapular Strength/Stabilization For the Purpose of:: To decrease pain, To improve muscle performance and motor function, To increase tolerance to activity/condition/position, To improve ability of physical actions for home/community/work/leisure, To decrease soft tissue restriction, To increase flexibility/ROM and To improve self management Last Seen Last Seen: This patient was last seen in our office 09/22/24. Pertinent comments regarding their Physical therapy will appear below: It has been my pleasure to see this patient for a total of 13 visits. This patient has not returned to Physical Therapy for more visits and is appropriate to return to MD for further follow-up as needed. At this point I will be discontinuing this patient from physical therapy. I would be happy to see this patient again in the future if found appropriate by the physician. Thank you! Deysi Bueno, PT, Cert MDT Balance/Gait/Functional tests Balance/Special Test Scores Oswestry Low Back Score: 15 Oswestry Neck Score: 13
== END 2024-09-22 19:00 | disposition home or self-care (01) ==
LOC: PT 14:30
PROVIDERS: PCP Family Medicine; Referring Provider Orthopaedic Surgery Orthopaedic Surgery of the Spine; Visit Provider Orthopaedic Surgery Orthopaedic Surgery of the Spine
DX: M54.2 Cervicalgia (principal); G89.29 Other chronic pain
CPT/HCPCS: 97113; 97162; 97530

== ENCOUNTER → 2024-11-22 | Outpatient (CLI) | payer OTHER, SELFPAY ==
--- NOTE | 2024-11-22 10:45 | MRI_ITS ---
PROCEDURE: SPINE LUMBAR W/WO CONTRAST 11/22/2024 REASON FOR EXAM: RAD SX RIGHT >1 YEAR, HX OF FUSION TECHNIQUE: Procedure Code: [id number] Modality: MR Procedure: SPINE LUMBAR W/WO CONTRAST Multiplanar and multisequence images were obtained without and with intravenous gadolinium-based contrast administration. CONTRAST: Clariscan VOLUME: 21 mL COMPARISON: MR lumbar spine 08/20/2023. FINDINGS: Vertebrae: Preserved in height and signal. Status post posterior fusion of L4-L5. Alignment: Normal. Conus Medullaris: Unremarkable. L1-2: Unremarkable L2-3: Unremarkable L3-4: Unremarkable L4-5: Unremarkable L5-S1: Facet joints arthropathy with fluid effusion. No foraminal or canal stenosis. Sacrum: Visualized upper sacrum and SI joints are unremarkable. Postcontrast images: Unremarkable without evidence of arcuate tinnitus, epidural thickening or infectious process. MRI/Spine Lumbar W/WO Contrast IMPRESSION: Postsurgical changes for posterior fusion of L4-L5 along with spacer placement. No acute findings or significant foraminal or canal stenosis. Reading Location: [id number]
== END | disposition home or self-care (01) ==
PROVIDERS: PCP Family Medicine; Referring Provider Student in an Organized Health Care Education/Training Program; Visit Provider Student in an Organized Health Care Education/Training Program
DX: Z98.1 Arthrodesis status (principal)
CPT/HCPCS: 72158; A9575